=== PATIENT | female | born 1965 | race American Indian/Alaskan Native ===

== ENCOUNTER 2016-12-21 13:54 | Emergency (ER) | payer MEDICAID ==
[2016-12-21 14:10] VITALS: BMI 30.9
[2016-12-21] MEDS ORDERED: Famotidine 20mg/50ml 20 MG/50 ML BAG IV STA (14:55)
[2016-12-21] MEDS ORDERED: Sodium Chloride 0.9% 1,000 ML IV STA ×2 (14:55→14:56)
[2016-12-21 15:21] LABS: BASO # 0.02 K/mm3 (0.0-2.0); BASO % 0.2 % (0.0-3.0); EOS # 0.1 (0.0-0.7); EOS % 0.6 % (1.5-5.0); GRAN # 9.73 (1.4-6.5); GRAN % 78.5 % (50.0-68.0); HEMOGLOBIN 15.4 gm/dL (12.0-16.0); LYMPH # 1.9 (1.2-3.4); LYMPH % 15.7 % (22.0-35.0); MEAN CORPUSCULAR HEMOGLOBIN 30.4 pg (25.0-35.0); MEAN CORPUSCULAR HGB CONC 34.1 g/dl (31.0-37.0); MEAN PLATELET VOLUME 11.2 fl (7.0-11.0); MONO # 0.6 (0.1-0.6); PLATELET COUNT 238 10^3/uL (120.0-450.0); RBC 5.07 10^6/uL (3.5-6.1); RED CELL DISTRIBUTION WIDTH 13.9 % (11.5-14.5); WHITE BLOOD COUNT 12.4 10^3/ul (4.5-11.0)
[2016-12-21 15:30] LABS: ALB/GLOB RATIO 1.4 (1.1-1.8); ALBUMIN 4.4 g/dL (3.0-4.8); ALT/SGPT 20 U/L (7-56); AMYLASE 69 U/L (35-125); AST/SGOT 20 U/L (15-39); BLOOD UREA NITROGEN 12 mg/dL (7-21); CALCIUM 10.8 mg/dL (8.4-10.5); GFR AFRICAN-AMERICAN > 60; GFR NON-AFRICAN AMERICAN > 60; LIPASE 30 U/L (23-300)
[2016-12-21 15:42] LABS: PARTIAL THROMBOPLASTIN TIME 24.5 Seconds (23.7-30.8); PROTHROMBIN TIME 10.8 Seconds (9.9-11.8)
[2016-12-21 15:47] VITALS: TEMP 98.9
[2016-12-21] MEDS ORDERED: Magnesium Sulfate 1 gm in D5W 1 GM/100 ML BAG IVPB ONE (16:35)
[2016-12-21] MEDS ORDERED: Potassium Chloride 20 mEq ER Tab PO STA (16:35)
[2016-12-21] MEDS ORDERED: Iohexol 350 MG/100 ML VIAL ONE (17:08)
--- NOTE | 2016-12-21 17:56 | CT ---
PROCEDURE: CT Abdomen and Pelvis with contrast HISTORY: Abdominal pain COMPARISON: None. TECHNIQUE: CT scan of the abdomen and pelvis was performed without administration of oral contrast. Intravenous contrast was administered. Coronal and sagittal reformatted images were obtained. Radiation dose: Total exam DLP = 642.65 mGy-cm. This CT exam was performed using one or more of the following dose reduction techniques: Automated exposure control, adjustment of the mA and/or kV according to patient size, and/or use of iterative reconstruction technique. FINDINGS: LOWER THORAX: There is subsegmental atelectasis in both lower lobes. LIVER: There is mild hepatomegaly and diffuse low-attenuation in the level. There are scattered tiny low-attenuation lesions in the liver, too small to characterize by CT criteria but statistically most compatible with simple cysts. There is mild intrahepatic biliary ductal dilatation. GALLBLADDER AND BILE DUCTS: There are no calcified gallstones. There is mild prominence of the common bile duct. PANCREAS: Normal in size and homogeneous enhancement. There is mild prominence of the pancreatic duct. SPLEEN: The spleen is normal in size. ADRENALS: The right adrenal gland is normal in size. There is mild thickening of the left adrenal gland. KIDNEYS AND URETERS: Both kidneys are normal in size and there is homogeneous enhancement without hydronephrosis or mass. There is a 5 mm nonobstructing stone in the lower pole of the left kidney. VASCULATURE: No aortic aneurysm. BOWEL: The small bowel loops are normal in caliber. There is fecalization of distal small bowel contents. There is moderate amount of stool in the colon. APPENDIX: Normal appendix. PERITONEUM: No free fluid. No free air. LYMPH NODES: No enlarged lymph nodes. BLADDER: Normal in appearance. Common bile duct and pancreatic duct. REPRODUCTIVE: Unremarkable. BONES: There are age indeterminate superior endplate compression fractures in the L2 and L3 vertebral bodies, worse at L3. There is severe levoscoliosis in the lumbar spine and multilevel degenerative changes. OTHER FINDINGS: None. IMPRESSION: 1. Mild intrahepatic biliary dilatation and mild prominence of the common bile duct and pancreatic duct. No CT evidence of choledocholithiasis. 2. Mild hepatomegaly. Diffuse low-attenuation in the liver could be related to hepatic steatosis however hepatitis an other parenchymal processes cannot be entirely excluded. 3. 5 mm nonobstructing stone in the lower pole of the left kidney.
--- NOTE | 2016-12-21 18:14 | ED PDOC ---
Arrival/HPI - General Chief Complaint: GI Problem Time Seen by Provider: 12/21/16 14:55 - History of Present Illness Narrative History of Present Illness (Text): 12/21/16 18:13 51yo female with 2 days duration non-bilious, non-bloody vomiting, non-bloody diarrhea, nausea, and abd. cramping. No relieving or exacerbating factors. Denies recent travel, abx, denies relieving or exacerbating factors. No other complaints. Past Medical History - Provider Review Nursing Documentation Reviewed: Yes - Past History Past History: No Previous - Infectious Disease Hx of Infectious Diseases: None - Reproductive Menopause: Yes - Cardiac Hx Cardiac Disorders: No - Pulmonary Hx Asthma: Yes - Psychiatric Hx Substance Use: Yes - Anesthesia Hx Anesthesia: No Hx Anesthesia Reactions: No Hx Malignant Hyperthermia: No Family/Social History Family/Social History: Unknown Family HX Smoking Status: Heavy Smoker > 10 Cigarettes Daily Hx Alcohol Use: Yes Hx Substance Use: Yes Substance used: marijuana Allergies/Home Meds Allergies/Adverse Reactions: Allergies diphenhydramine Allergy (Verified 12/29/15 17:09) ITCHING Physical Exam - Physical Exam Narrative Physical Exam (Text): 12/21/16 18:14 - Review of Systems Constitutional: Normal. absent: Fatigue, Weight Change, Fevers Eyes: Normal ENT: denies sore throat, denies tristhmus Respiratory: Normal. absent: SOB, Cough, Sputum Cardiovascular: absent: Chest Pain, Palpitations, Syncope Gastrointestinal: Abdominal Pain, Diarrhea, Nausea, Vomiting Genitourinary: Normal. absent: Dysuria, Frequency, Hematuria, vaginal bleeding Musculoskeletal: Normal. absent: Arthralgias, Back Pain, Neck Pain Skin: no rashes, no erythema Neurological: absent: Focal Weakness Endocrine: Normal Hemo/Lymphatic: Normal Psychiatric: No suicidal or homicidal ideations Physical exam Patient appears age appropriate in no distress, speaking full sentences without difficulty - Systems Exam Head: Present: Atraumatic, Normocephalic Pupils: Present: PERRL Extroacular Muscles: Present: EOMI Conjunctiva: Present: Normal Mouth: Present: Moist Mucous Membranes Neck: Present: Normal Range of Motion. No: MIDLINE TENDERNESS, Paraspinal Tenderness Respiratory/Chest: Present: Clear to Auscultation, Good Air Exchange. No: Respiratory Distress, Accessory Muscle Use, Tachypneic Cardiovascular: Present: Regular Rate and Rhythm, Normal S1, S2, Peripheal Pulses Present. No: Murmurs Abdomen: Present: Normal Bowel Sounds. No: Tenderness, Distention, Peritoneal Signs, Rebound, Guarding Back: Present: Normal Inspection. No: Midline Tenderness, Paraspinal Tenderness Upper Extremity: Present: Normal Inspection. No: Cyanosis, Edema Lower Extremity: Present: Normal Inspection. No: Edema Neurological: Present: GCS=15, Speech Normal, cranial nerves II through XII fully intact with no cerebellar abnormality, neurosensory fully intact. No focal neurological deficits. Skin: Present: Warm, Dry, Normal Color. No: Rashes Lymphatic: Present: OX3, NI, NC Psychiatric: Present: Alert, Oriented x 3, Normal Insight, Normal Concentration Vital Signs Reviewed: Yes Vital Signs Temp Pulse Resp BP Pulse Ox 12/21/16 15:44 98.9 F 65 24 154/100 H 96 12/21/16 14:06 98.7 F 98 H 18 156/123 H 96 Temperature: Afebrile Blood Pressure: Hypertensive Pulse: Regular Respiratory Rate: Normal Appearance: Positive for: Well-Appearing Pain Distress: None Mental Status: Positive for: Alert and Oriented X 3 Medical Decision Making ED Course and Treatment: 12/21/16 18:19 51yo female with n/v/d and abd cramping no acute findings on PE K low, K and Mg replacement ordered CT unremarkable for acute findings On reevaluation, patient reports that she feels much better and would like to be discharged home. Patient's repeat abdominal exam is soft, nontender, non distended with positive bowel sounds in all 4 quadrants and no peritoneal signs. Patient is tolerating PO without any difficulty. Pt states she understands to return to the ER right away for new or worsening symptoms or for inability to f/u with PMD or specialist as instructed. Patient states that she fully agrees with and understands discharge instructions. States that she agrees with the plan and disposition. Verbalized and repeated discharge instructions and plan. I have given the patient opportunity to ask any additional questions. - Lab Interpretations Lab Results: 12/21/16 15:00 12/21/16 15:00 Lab Results 12/21/16 15:00: PT 10.8, INR 1.00, APTT 24.5 12/21/16 15:00: Sodium 141, Potassium 3.0 L, Chloride 106, Carbon Dioxide 24, Anion Gap 14, BUN 12, Creatinine 0.7, Est GFR ( Amer) > 60, Est GFR (Non- Af Amer) > 60, Random Glucose 105, Calcium 10.8 H, Total Bilirubin 1.0, AST 20, ALT 20, Alkaline Phosphatase 71, Total Protein 7.6, Albumin 4.4, Globulin 3.2, Albumin/Globulin Ratio 1.4, Amylase 69, Lipase 30 12/21/16 15:00: WBC 12.4 H, RBC 5.07, Hgb 15.4, Hct 45.1, MCV 89.0, MCH 30.4, MCHC 34.1, RDW 13.9, Plt Count 238, MPV 11.2 H, Gran % 78.5 H, Lymph % (Auto) 15.7 L, [place] % (Auto) 5.0, Eos % (Auto) 0.6 L, Baso % (Auto) 0.2, Gran # 9.73 H , Lymph # 1.9, Bell # 0.6, Eos # 0.1, Baso # 0.02 - RAD Interpretation Radiology Orders: 12/21/16 16:36 ABD & PELVIS IV CONTRAST ONLY [CT] Stat - Medication Orders Current Medication Orders: Potassium Chloride (Potassium Chloride 20 Meq/100 Ml) 20 meq in 100 mls @ 50 mls/hr IVPB ONCE ONE Stop: 12/21/16 18:34 Discontinued Medications Sodium Chloride (Sodium Chloride 0.9%) 1,000 mls @ 999 mls/hr IV .Q1H1M STA Stop: 12/21/16 15:56 Last Admin: 12/21/16 14:58 Dose: 999 mls/hr Famotidine (Pepcid 20mg/50ml Premix) 20 mg in 50 mls @ 100 mls/hr IV STAT STA Stop: 12/21/16 15:24 Last Admin: 12/21/16 15:11 Dose: 100 mls/hr Magnesium Sulfate/Dextrose (Magnesium Sulfate 1 Gm/100 Ml D5w) 1 gm in 100 mls @ 100 mls/hr IVPB ONCE ONE Stop: 12/21/16 17:34 Last Admin: 12/21/16 17:39 Dose: 100 mls/hr Iohexol (Omnipaque 350 100 Ml) Confirm Administered Dose 350 mg .ROUTE .STK-MED ONE Stop: 12/21/16 17:09 Ketorolac Tromethamine (Toradol) 15 mg IVP STAT STA Stop: 12/21/16 14:56 Last Admin: 12/21/16 15:11 Dose: 15 mg Ondansetron HCl (Zofran Inj) 4 mg IVP STAT STA Stop: 12/21/16 14:56 Last Admin: 12/21/16 15:11 Dose: 4 mg Potassium Chloride (K-Dur 20 Meq Er Tab) 40 meq PO STAT STA Stop: 12/21/16 16:36 Last Admin: 12/21/16 17:39 Dose: 40 meq Disposition/Present on Arrival - Present on Arrival Any Indicators Present on Arrival: No History of DVT/PE: No History of Uncontrolled Diabetes: No Urinary Catheter: No History of Decub. Ulcer: No History Surgical Site Infection Following: None - Disposition Have Diagnosis and Disposition been Completed?: Yes Diagnosis: Nausea vomiting and diarrhea Disposition: HOME/ ROUTINE Disposition Time: 18:11 Patient Plan: Discharge Condition: GOOD Discharge Instructions (ExitCare): Gastroenteritis (ED), Acute Nausea and Vomiting (ED), Acute Diarrhea (ED), Acute Abdominal Pain (ED) Additional Instructions: PLEASE RETURN TO THE EMERGENCY DEPARTMENT FOR NEW OR WORSENING SYMPTOMS. RETURN RIGHT AWAY IF YOU CANNOT FOLLOW UP WITH YOUR PRIMARY CARE DOCTOR, CLINIC, OR SPECIALIST IN 1-2 DAYS. Prescriptions: Famotidine [Pepcid] 20 mg PO BID #14 tab Ondansetron [Zofran Odt] 4 mg PO Q6 PRN #14 odt PRN Reason: Nausea/Vomiting Referrals: PCP,NO [Primary Care Provider] - Follow up with primary Monroe Zelaya MD [Medical Doctor] - Follow up with primary Nieves Ann MD [Staff Provider] - Follow up with primary Forms: [employer] (Setswana)
[2016-12-21 19:14] VITALS: BP 158/92; PULSE 70; RESP 18; O2SAT 97
== END 2016-12-21 19:14 | disposition home or self-care (01) ==
LOC: ED 13:54
DX: R11.2 Nausea with vomiting, unspecified (principal); R19.7 Diarrhea, unspecified
CPT/HCPCS: 74177; 80053; 82150; 83690; 85025; 85610; 85730; 96361; 96365; 96367; 96375; 99285; J1885; J2405; J3475; J3480; J7040; Q9967

== ENCOUNTER 2017-09-03 15:26 | Inpatient (IN) | payer MEDICAID ==
--- NOTE | 2017-09-03 16:27 | ED PDOC ---
Arrival/HPI - General Historian: Patient - History of Present Illness Time/Duration: < week Symptom Course: Worsening Activities at Onset: Rest - General Chief Complaint: Chest Pain Time Seen by Provider: 09/03/17 15:40 - History of Present Illness Narrative History of Present Illness (Text): 09/03/17 16:20 52 yo F with PMH of hypertension on clonidine 0.3mg BID presents complaining of nausea/vomiting x1 week and chest pain x2 days. Vomiting is nonbloody, nonbilious. She took some pepto bismol yesterday which helped. She denies fever , chills, diarrhea. She does report some epigastric abdominal pain that started after the vomiting. Chest pain woke her up from sleep yesterday, in the left chest, worsens with deep inhalation, reproducible on exam, does not radiate. No dyspnea on exertion, chest pain does not worsen with exertion, no diaphoresis. She has never had this pain before. Patient reports that she snorts 10 bags of heroin daily, and feels as though she got a "bad bag" a week ago that made her sick. She did not use any heroin today. She denies history of IVDA. She also smokes 1/2ppd x30 years, current active smoker. She normally takes clonidine for her blood pressure, 0.3mg twice daily, but she did not take her clonidine today. (Otf Wan) Past Medical History - Provider Review Nursing Documentation Reviewed: Yes - Travel History Have you recently traveled outside [place] w/in the past 3 mons?: No - Infectious Disease Hx of Infectious Diseases: None - Tetanus Immunization Tetanus Immunization: Unknown - Cardiac Hx Hypertension: Yes - Pulmonary Hx Asthma: Yes - Psychiatric Hx Substance Use: Yes - Anesthesia Hx Anesthesia: No Hx Anesthesia Reactions: No Hx Malignant Hyperthermia: No - Patient History Narrative Patient History: hypertension (Otf Wan) Family/Social History - Physician Review Nursing Documentation Reviewed: Yes Family/Social History: Unknown Family HX Smoking Status: Heavy Smoker > 10 Cigarettes Daily Hx Alcohol Use: Yes Hx Substance Use: Yes Substance used: marijuana, heroin Route: Smoking/Inhalation Allergies/Home Meds Allergies/Adverse Reactions: Allergies diphenhydramine Allergy (Verified 09/03/17 15:42) ITCHING Home Medications: Home Meds Medication Instructions Recorded Confirmed No Known Home Med 09/03/17 09/03/17 Review of Systems - Review of Systems Constitutional: Normal Eyes: Normal ENT: Normal Respiratory: Normal Cardiovascular: Chest Pain, Edema Gastrointestinal: Abdominal Pain, Nausea, Vomiting Genitourinary Female: Normal Musculoskeletal: Normal Skin: Normal Neurological: Normal Endocrine: Normal Hemo/Lymphatic: Normal Psychiatric: Normal Physical Exam Vital Signs Reviewed: Yes Temperature: Afebrile Blood Pressure: Hypertensive Pulse: Regular Respiratory Rate: Normal Appearance: Positive for: Well-Appearing, Non-Toxic, Uncomfortable. No: Comfortable Pain Distress: Moderate Mental Status: Positive for: Alert and Oriented X 3 - Systems Exam Head: Present: Atraumatic, Normocephalic Pupils: Present: PERRL Extroacular Muscles: Present: EOMI Conjunctiva: Present: Normal Mouth: Present: Moist Mucous Membranes Neck: Present: Normal Range of Motion Respiratory/Chest: Present: Good Air Exchange, Rales (faint, bibasilar). No: Respiratory Distress Cardiovascular: Present: Regular Rate and Rhythm, Normal S1, S2 Abdomen: Present: Tenderness (epigastric), Normal Bowel Sounds. No: Distention , Peritoneal Signs, Rebound, Guarding Upper Extremity: Present: Normal Inspection. No: Cyanosis, Edema Lower Extremity: Present: Edema (bilateral, trace pitting edema, to mid-dean, L> R). No: CALF TENDERNESS Neurological: Present: GCS=15, CN II-XII Intact, Speech Normal Skin: Present: Warm, Dry, Normal Color Psychiatric: Present: Alert, Oriented x 3, Normal Insight, Normal Concentration Vital Signs Temp Pulse Resp BP Pulse Ox 09/03/17 20:10 88 20 111/80 96 09/03/17 19:00 86 18 112/76 98 09/03/17 17:13 78 158/116 H 09/03/17 16:00 98.9 F 88 18 176/118 H 95 Medical Decision Making - Lab Interpretations I have reviewed the lab results: Yes Interpretation: Abnormal lab values - RAD Interpretation Therapeutic Strategy Lead: Radiologist - EKG Interpretation Interpreted by ED Physician: Yes Type: 12 lead EKG ED Course and Treatment: 09/03/17 16:34 Impression: Chest pain, h/o intranasal heroin use, nausea/vomiting Differential Diagnosis included but are not limited to: ACS, DVT/PE, chemical pneumonitis, gastritis Plan: -- CBC, CMP, Cardiac ISO, Amylase/Lipase, BNP, D dimer, PT/PTT, Mag, Urinalysis , UDS -- Chest X-ray, EKG, LE duplex -- NPO -- O2 2LNC -- Clonidine 0.3mg for hypertension -- Zofran for nausea -- Pepcid for ?gastritis -- Reassess and disposition Prior Visits: Notes and results from previous visits were reviewed. Progress Notes: Patient reevaluated after zofran, pepcid, and clonidine. BP improved. Nausea, abdominal pain, and chest pain slightly improved. EKG and Chest X-ray unremarkable. LE Duplex negative for DVT. D Dimer low. Amylase/Lipase low. Cardiac ISO negative. Labs remarkable for elevated T Bili, ordered Abd US Abd US shows cholelithiasis and dilated CBD, without thickened gallbladder wall , no pericholecystic fluid. Patinet continues to have some mild abdominal pain, mild nausea. Requested general surgery consult. Discussed patient with hospitalist Dr. Rock Levi, who accepts patient to her service, patient will be admitted to remote telemetry for hypertension, chest pain, abdominal pain, nausea, and cholelithiasis (Otf Wan) 09/03/17 22:00 Patient seen and evaluated with biomedical engineering supervisor. Patient reports history of upper abdominal pain which is palpable, moderate, epigastric on my exam. She also reports history of chest discomfort. Chest pain is somewhat palpable, although she is hypertensive. BP and pulse equal in both upper extremities. Clonidine given with improvement in BP. Abdominal pain improved but persistent after iv pain medication. Ultrasound reveals gallstones. Currently wbc unremarkable and currently no sonographic evidence of cholecysitis. Patient will be admitted to telemetry for biliary colic, chest pain with hypertension. EKG unremarkable currently for acute ischemic changes. Case d/w hospitalist, accepts admission with surgery consultation. (Nabila Ta) - Lab Interpretations Lab Results: 09/03/17 16:30 09/03/17 16:30 Lab Results 09/03/17 16:30: PT 12.6 H, INR 1.10 H, APTT 32.5, D-Dimer, Quantitative < 200 09/03/17 16:30: Sodium 142, Potassium 3.8, Chloride 101, Carbon Dioxide 29, Anion Gap 16, BUN 12, Creatinine 0.6 L, Est GFR ( Amer) > 60, Est GFR ( Non-Af Amer) > 60, Random Glucose 112 H, Calcium 11.9 H, Magnesium 2.3 H, Total Bilirubin 1.6 H, AST 27, ALT 20, Alkaline Phosphatase 78, Lactate Dehydrogenase 612, Total Creatine Kinase 44, Troponin I 0.01, NT-Pro-B Natriuret Pep 276, Total Protein 8.4 H, Albumin 4.6, Globulin 3.7, Albumin/Globulin Ratio 1.2, Amylase 73, Lipase 40 09/03/17 16:30: WBC 9.9 D, RBC 5.39, Hgb 16.2 H, Hct 47.4, MCV 87.9, MCH 30.1, MCHC 34.2, RDW 14.6 H, Plt Count 233, MPV 10.9, Gran % 73.6 H, Lymph % (Auto) 16.1 L, [place] % (Auto) 9.5 H, Eos % (Auto) 0.7 L, Baso % (Auto) 0.1, Gran # 7.32 H, Lymph # (Auto) 1.6, [place] # (Auto) 0.9 H, Eos # (Auto) 0.1, Baso # (Auto) 0.01 - RAD Interpretation Radiology Orders: 09/03/17 16:00 DUPLEX LOWER EXTRM VEIN BILAT [US] Stat 09/03/17 16:01 CHEST PORTABLE [RAD] Stat 09/03/17 17:20 ABDOMEN COMPLETE [US] Stat - Medication Orders Current Medication Orders: Aspirin (Aspirin Chewable) 81 mg PO DAILY ADRIANO Atorvastatin Calcium (Lipitor) 10 mg PO DIN [facility] Sodium Chloride (Sodium Chloride 0.9%) 1,000 mls @ 125 mls/hr IV .Q8H [facility] Discontinued Medications Aspirin (Aspirin) 325 mg PO STAT STA Stop: 09/03/17 21:32 Atorvastatin Calcium (Lipitor) 20 mg PO STAT STA Stop: 09/03/17 21:32 Clonidine HCl (Catapres) 0.3 mg PO STAT STA Stop: 09/03/17 16:16 Last Admin: 09/03/17 17:13 Dose: 0.3 mg MAR Pulse and Blood Pressure Document 09/03/17 17:13 HI (Rec: 09/03/17 17:13 HI [id number]) Pulse Pulse Rate (60-90 beats/min) 78 Blood Pressure Blood Pressure (100/60-150/90 mm Hg) 158/116 Famotidine (Pepcid) 20 mg IVP STAT STA Stop: 09/03/17 16:05 Last Admin: 09/03/17 16:37 Dose: 20 mg IVP Administration Document 09/03/17 16:37 HI (Rec: 09/03/17 16:37 HI [id number]) Charges for Administration # of IVP Administrations 1 Ondansetron HCl (Zofran Inj) 4 mg IVP STAT STA Stop: 09/03/17 16:05 Last Admin: 09/03/17 16:37 Dose: 4 mg IVP Administration Document 09/03/17 16:37 HI (Rec: 09/03/17 16:37 HI [id number]) Charges for Administration # of IVP Administrations 1 Pneumococcal Polyvalent Vaccine (Pneumovax 23 Vaccine) 0.5 ml IM .ONCE ONE Stop: 09/03/17 21:49 Disposition/Present on Arrival - Present on Arrival Any Indicators Present on Arrival: No History of DVT/PE: No History of Uncontrolled Diabetes: No Urinary Catheter: No History of Decub. Ulcer: No History Surgical Site Infection Following: None - Disposition Have Diagnosis and Disposition been Completed?: Yes Disposition Time: 20:20 Patient Plan: Telemetry - Disposition Diagnosis: Chest pain, Abdominal pain, Nausea & vomiting, Hypertension, Cholelithiasis Disposition: HOSPITALIZED Patient Problems: Current Active Problems Problem Status Onset Abdominal pain Acute Chest pain Acute Cholelithiasis Acute Hypertension Acute Nausea & vomiting Acute Condition: STABLE
[2017-09-03 16:48] LABS: BASO # 0.01 K/mm3 (0.0-2.0); BASO % 0.1 % (0.0-3.0); EOS # 0.1 (0.0-0.7); EOS % 0.7 % (1.5-5.0); GRAN # 7.32 (1.4-6.5); GRAN % 73.6 % (50.0-68.0); HEMOGLOBIN 16.2 g/dL (12.0-16.0); LYMPH # 1.6 (1.2-3.4); LYMPH % 16.1 % (22.0-35.0); MEAN CELL VOLUME 87.9 fl (80.0-105.0); MEAN CORPUSCULAR HEMOGLOBIN 30.1 pg (25.0-35.0); MEAN CORPUSCULAR HGB CONC 34.2 g/dl (31.0-37.0); MEAN PLATELET VOLUME 10.9 fl (7.0-11.0); MONO # 0.9 (0.1-0.6); MONO % 9.5 % (1.0-6.0); RBC 5.39 10^6/uL (3.5-6.1); RED CELL DISTRIBUTION WIDTH 14.6 % (11.5-14.5); WHITE BLOOD COUNT 9.9 10^3/ul (4.5-11.0)
[2017-09-03 16:58] LABS: PROTHROMBIN TIME 12.6 SECONDS (9.4-12.5)
[2017-09-03 16:59] LABS: D DIMER < 200 ng/mL (0-243); PARTIAL THROMBOPLASTIN TIME 32.5 Seconds (25.1-36.5)
[2017-09-03 17:01] LABS: AMYLASE 73 U/L (35-125); CALCIUM 11.9 mg/dL (8.4-10.5); GFR AFRICAN-AMERICAN > 60; GFR NON-AFRICAN AMERICAN > 60; LIPASE 40 U/L (23-300)
[2017-09-03 17:06] LABS: ALB/GLOB RATIO 1.2 (1.1-1.8); ALBUMIN 4.6 g/dL (3.0-4.8); ALT/SGPT 20 U/L (7-56); AST/SGOT 27 U/L (14-36); BLOOD UREA NITROGEN 12 mg/dL (7-21)
[2017-09-03 17:12] LABS: B-TYPE NATRIURETIC PEPTIDE 276 pg/mL (0-450)
[2017-09-03 17:16] LABS: TROPONIN I 0.01 ng/mL
--- NOTE | 2017-09-03 18:08 | RAD ---
HISTORY: Chest pain COMPARISON: No prior. FINDINGS: LUNGS: The lungs are well inflated and clear. There is linear atelectasis/scarring in the right lung base. PLEURA: No significant pleural effusion identified, no pneumothorax apparent. CARDIOVASCULAR: Normal. OSSEOUS STRUCTURES: No significant abnormalities. VISUALIZED UPPER ABDOMEN: Normal. OTHER FINDINGS: None. IMPRESSION: No active pulmonary disease.
--- NOTE | 2017-09-03 18:24 | US ---
HISTORY: Leg pain and swelling. Evaluate for DVT PHYSICIAN(S): Karthikeyan Ponce MD. TECHNIQUE: Duplex sonography and color-flow Doppler with graded compression were used to evaluate the deep venous systems of both lower extremities. FINDINGS: The visualized deep venous systems of both lower extremities are sonographically normal and compressible. Normal wave forms and augmentation are seen. There is no sonographic evidence for deep venous thrombosis in the visualized segments of both lower extremities. Small bilateral Sheets cysts are present, greater on the left than the right. IMPRESSION: No sonographic evidence for deep venous thrombosis in the visualized segments of both lower extremities.
--- NOTE | 2017-09-03 18:30 | US ---
HISTORY: elevated T-bili; abdominal pain; N/V COMPARISON: None. TECHNIQUE: Grayscale imaging was performed. FINDINGS: LIVER: Measures 14.1 cm. There is diffuse increased echogenicity of the liver parenchyma. No mass. No intrahepatic bile duct dilatation. GALLBLADDER: There are multiple gallstones. No wall thickening or pericholecystic fluid. The sonographic Marquez's sign is negative. COMMON BILE DUCT: Measures 10 mm. There is diffuse dilatation without evidence for choledocholithiasis. PANCREAS: Unremarkable as visualized. No mass. No ductal dilatation. RIGHT KIDNEY: Measures 9.7cm. Normal echogenicity. No calculus, mass, or hydronephrosis. LEFT KIDNEY: Measures 10.6cm. Normal echogenicity. No calculus, mass, or hydronephrosis. SPLEEN: Normal in size and contour. No mass. AORTA: No aneurysmal dilatation. IVC: Unremarkable. OTHER FINDINGS: None. IMPRESSION: Cholelithiasis. No sonographic evidence for acute cholecystitis. Moderate diffuse dilatation of the common bile duct without evidence for choledocholithiasis. Diffuse increased echogenicity in the liver may reflect hepatic steatosis however parenchymal infectious/ inflammatory etiologies cannot be entirely excluded. Clinical and laboratory correlation is advised.
--- NOTE | 2017-09-03 20:34 | CP.PCM.HP ---
<Valentina Lowry - Last Filed: 09/04/17 04:39> History of Present Illness - History of Present Illness History of Present Illness: Admission: hypertension, chest pain, abdominal pain, nausea, and cholelithiasis CC: n/v, cp 52 year old female with PMH HTN, heroin abuse, presents for nausea and vomiting for past 1 week. Last Friday, pt states that she started having vomiting episodes 1-2 nonbloody, nonbilious after she snorted her usual 10 bags of heroin. She attributed it to possibly a "bad bag" that made her sick. Denies previous such episodes. Last vomiting episode this AM. Pt also started having associated epigastric pain, relieved partially by Pepto Bismol. Pt also reports left sided chest pain, pressure like, worsens with movement and deep inspiration , nonradiating, denies associated palpitations, diaphoresis, syncope, dizziness. No prior episodes before. No prior stress test or cardiac cath. In ED, elevated BP 178/118, given clonidine. Hgb 16.2 (concentrated), total bili 1.6, d dimer neg with LE US neg for DVT. Lipase, LFTs, ALP norml. trop 0.[address]/T wave changes on EKG. Abd US shows cholelithiasis and CBD dilatation. 12 point ROS obtained and negative, except as per HPI. PMD: [place] PMH: HTN PSH: Denies ALL: Diphenhydramine (sleepy, tingling) SocialHx: Lives with boyfriend. Unemployed. smokes tobacoo 1/2 ppd for 30+ years , 10 bags of heroine per day for 10+ years, denies ETOH use/IVDU. FamilyHx: Sister of lung cancer Home meds: clonidine 0.3 mg BID Present on Admission - Present on Admission Any Indicators Present on Admission: No History of DVT/PE: No History of Uncontrolled Diabetes: No Urinary Catheter: No Decubitus Ulcer Present: No Review of Systems - Review of Systems All systems: reviewed and no additional remarkable complaints except Review of Systems: as per HPI Past Patient History - Infectious Disease Hx of Infectious Diseases: None - Tetanus Immunizations Tetanus Immunization: Unknown - Past Social History Smoking Status: Heavy Smoker > 10 Cigarettes Daily - CARDIAC Hx Hypertension: Yes - PULMONARY Hx Asthma: Yes - PSYCHIATRIC Hx Substance Use: Yes - SURGICAL HISTORY Hx Surgeries: No - ANESTHESIA Hx Anesthesia: No Hx Anesthesia Reactions: No Hx Malignant Hyperthermia: No Meds Allergies/Adverse Reactions: Allergies Allergy/AdvReac Type Severity Reaction Status Date / Time diphenhydramine Allergy ITCHING Verified 09/03/17 15:42 Physical Exam - Constitutional Appears: Non-toxic, No Acute Distress - Head Exam Head Exam: ATRAUMATIC, NORMOCEPHALIC - Eye Exam Eye Exam: EOMI, PERRL. absent: Conjunctival injection, Nystagmus, Scleral icterus Pupil Exam: NORMAL ACCOMODATION, PERRL. absent: Fixed, Irregular, Miosis, Mydriatic, Unequal - ENT Exam ENT Exam: Mucous Membranes Moist - Neck Exam Neck exam: Positive for: Full Rom - Respiratory Exam Respiratory Exam: Clear to Auscultation Bilateral, NORMAL BREATHING PATTERN. absent: Accessory Muscle Use, Rhonchi, Wheezes, Respiratory Distress, Stridor - Cardiovascular Exam Cardiovascular Exam: RRR, +S1, +S2. absent: Systolic Murmur - GI/Abdominal Exam GI & Abdominal Exam: Normal Bowel Sounds, Soft, Tenderness (TTP in epigastric region). absent: Distended, Firm, Mass, Organomegaly, Rebound, Rigid Additional comments: rounded abdomen, obese female - Extremities Exam Extremities exam: Positive for: normal inspection. Negative for: calf tenderness, pedal edema - Back Exam Back exam: NORMAL INSPECTION. absent: CVA tenderness (L), CVA tenderness (R) - Neurological Exam Neurological exam: Alert, Oriented x3, Reflexes Normal Additional comments: + Sleepy - Psychiatric Exam Additional comments: Sleepy - Skin Skin Exam: Dry, Normal Color, Warm Additional comments: normal skin turgor. No jaundice Results - Vital Signs Recent Vital Signs: Last Vital Signs Temp 98.9 F 09/03/17 16:00 Pulse 88 09/03/17 20:10 Resp 20 09/03/17 20:10 BP 111/80 09/03/17 20:10 Pulse Ox 96 09/03/17 20:10 - Labs Result Diagrams: 09/03/17 16:30 09/03/17 16:30 Assessment & Plan - Assessment and Plan (Free Text) Assessment: 52 year old female with PMH HTN, heroin abuse, presents for cp, nausea/vomiting , dilated CBD: Chest pain, r/o ACS: likely from GI origin vs musculoskeletal vs ACS - initial trop 0.01, f/u serial trops - EKG NSR, no ST.T wave abnormalities, official read pending. F/u EKG in AM. - D dimer low, LE duplex neg for DVT Nausea and vomiting/epigastric pain: likely 2/2 cholelithiaisis vs gastroenteritis - Abd US shows cholelithiasis (multiple) and dilated CBD 10 mm without evidence of choledocholithiasis, without thickened gallbladder wall, no pericholecystic fluid. - Zofran prn - norml lipase/amylase - Surgery and GI consulted. F/u recs - Protonix IV - NPO - NS @ 125 Dilated CBD: 2/2 opium induced vs obstructive pathology - Gi consulted. F/u recs - MRCP - Direct bili f/u Heroin/Opioid abuse: - COWS score low, 3 currently - Ativan prn, klonopin prn, Atarax prn Hx of HTN: - resume home clonidine PPX: Protonix, SCDs Diet: NPO Discussed with Dr Lani Levi. <Rock Levi - Last Filed: 09/04/17 06:23> Results - Vital Signs Recent Vital Signs: Last Vital Signs Temp 98.6 F 09/03/17 21:23 Pulse 75 09/04/17 05:45 Resp 18 09/03/17 21:23 BP 131/70 09/03/17 21:23 Pulse Ox 96 09/03/17 20:10 - Labs Result Diagrams: 09/04/17 04:35 09/04/17 04:35 Labs: Laboratory Results - last 24 hr 09/04/17 09/04/17 09/04/17 04:35 04:35 04:35 WBC 8.3 RBC 4.89 Hgb 14.3 Hct 43.0 MCV 87.9 MCH 29.2 MCHC 33.3 RDW 14.8 H Plt Count 203 MPV 10.6 Gran % 63.3 Lymph % (Auto) 25.2 [place] % (Auto) 9.4 H Eos % (Auto) 2.0 Baso % (Auto) 0.1 Gran # 5.26 Lymph # (Auto) 2.1 [place] # (Auto) 0.8 H Eos # (Auto) 0.2 Baso # (Auto) 0.01 Sodium 143 Potassium 3.3 L Chloride 106 Carbon Dioxide 30 Anion Gap 10 BUN 13 Creatinine 0.8 Est GFR ( Amer) > 60 Est GFR (Non-Af Amer) > 60 Random Glucose 104 Calcium 11.5 H Phosphorus 2.7 Magnesium 2.3 H Total Bilirubin 1.8 H Direct Bilirubin 0.5 H AST 23 ALT 23 Alkaline Phosphatase 67 Troponin I 0.01 Total Protein 7.0 Albumin 3.8 Globulin 3.1 Albumin/Globulin Ratio 1.2 Triglycerides 91 Cholesterol 185 LDL Cholesterol Direct 116 HDL Cholesterol 39 TSH 3rd Generation < 0.02 L
--- NOTE | 2017-09-03 21:01 | CP.PCM.CON ---
History of Present Illness - History of Present Illness History of Present Illness: General Surgery- Dr. Zurita 52F pmhx significant for HTN and heroin use 1bag/oz per day for 10 years, presents to [facility] ED w/ nausea, morning non-bloody non-bilious vomiting, and epigastric radiating to RUQ abd pain that started 2 weeks ago, and chest pain for 2 days. Surgery was consulted for dialated CBD Pt suspects that it could have been a bad bag of heroine. last drug use was earlier today. Denies fevers, chills, bright red blood per rectum, diarrhea, recent sick contacts PMH: HTN PSH: Denies ALL: Diphenhydramine SocialHx: smokes 1/2 ppd for 30+ years, 1 bag/oz of heroine per day for 10+ years, denies ETOH use FamilyHx: Sister of lung cancer PMD: Dr. Butts Review of Systems - Review of Systems All systems: reviewed and no additional remarkable complaints except - Constitutional Constitutional: As Per HPI Past Patient History - Infectious Disease Hx of Infectious Diseases: None - Tetanus Immunizations Tetanus Immunization: Unknown - Past Social History Smoking Status: Heavy Smoker > 10 Cigarettes Daily - CARDIAC Hx Hypertension: Yes - PULMONARY Hx Asthma: Yes - PSYCHIATRIC Hx Substance Use: Yes - SURGICAL HISTORY Hx Surgeries: No - ANESTHESIA Hx Anesthesia: No Hx Anesthesia Reactions: No Hx Malignant Hyperthermia: No Meds Allergies/Adverse Reactions: Allergies Allergy/AdvReac Type Severity Reaction Status Date / Time diphenhydramine Allergy ITCHING Verified 09/03/17 15:42 Physical Exam - Constitutional Appears: Non-toxic, No Acute Distress, Other (would converse but sleeping and slow during encounter) - Head Exam Head Exam: ATRAUMATIC - Eye Exam Eye Exam: EOMI - ENT Exam ENT Exam: Mucous Membranes Moist - Respiratory Exam Respiratory Exam: NORMAL BREATHING PATTERN. absent: Accessory Muscle Use, Respiratory Distress - Cardiovascular Exam Cardiovascular Exam: +S1, +S2. absent: Bradycardia, Tachycardia - GI/Abdominal Exam GI & Abdominal Exam: Soft. absent: Distended, Firm, Guarding, Rigid, Tenderness Additional comments: - [place] sign - tender to deep palpation in RUQ - Extremities Exam Extremities exam: Negative for: calf tenderness - Back Exam Back exam: absent: CVA tenderness (L), CVA tenderness (R) - Neurological Exam Neurological exam: Alert, Oriented x3 - Psychiatric Exam Psychiatric exam: Normal Affect - Skin Skin Exam: Dry, Intact, Warm Results - Vital Signs Recent Vital Signs: Last Vital Signs Temp 98.9 F 09/03/17 16:00 Pulse 88 09/03/17 20:10 Resp 20 09/03/17 20:10 BP 111/80 09/03/17 20:10 Pulse Ox 96 09/03/17 20:10 - Labs Result Diagrams: 09/03/17 16:30 09/03/17 16:30 Assessment & Plan - Assessment and Plan (Free Text) Assessment: 52F w/ heroine dependence, chest and abd pain, dialated CBD on US most likely 2/ 2 chronic opium addiction US: no GBW thickening, no periocholecystic fluid. Plan: - Gallbladder not the source of pain - NPO - IVF - Recommend GI Consult - MRCP - will discuss w/ Dr. Zurita surgical attending PGY1
[2017-09-03 21:48] VITALS: BMI 30.7
[2017-09-03] MEDS ORDERED: Pneumococcal 23-Valent Vaccine IM ONE (21:48)
[2017-09-03] MEDS: Sodium Chloride 0.9% 1,000 ML IV SCH (22:38)
[2017-09-03] MEDS ORDERED: POLYETHYLENE GLYCOL 3350 17 GM/Dose PACKET PO STA (23:27)
[2017-09-04 05:00] LABS: BASO # 0.01 K/mm3 (0.0-2.0); BASO % 0.1 % (0.0-3.0); EOS # 0.2 (0.0-0.7); GRAN # 5.26 (1.4-6.5); GRAN % 63.3 % (50.0-68.0); HEMOGLOBIN 14.3 g/dL (12.0-16.0); LYMPH # 2.1 (1.2-3.4); LYMPH % 25.2 % (22.0-35.0); MEAN CELL VOLUME 87.9 fl (80.0-105.0); MEAN CORPUSCULAR HEMOGLOBIN 29.2 pg (25.0-35.0); MEAN CORPUSCULAR HGB CONC 33.3 g/dl (31.0-37.0); MEAN PLATELET VOLUME 10.6 fl (7.0-11.0); MONO # 0.8 (0.1-0.6); MONO % 9.4 % (1.0-6.0); RBC 4.89 10^6/uL (3.5-6.1); RED CELL DISTRIBUTION WIDTH 14.8 % (11.5-14.5); WHITE BLOOD COUNT 8.3 10^3/ul (4.5-11.0)
[2017-09-04 05:19] LABS: ALB/GLOB RATIO 1.2 (1.1-1.8); ALBUMIN 3.8 g/dL (3.0-4.8); ALT/SGPT 23 U/L (7-56); AST/SGOT 23 U/L (14-36); BILIRUBIN,DIRECT 0.5 mg/dL (0.0-0.4); BLOOD UREA NITROGEN 13 mg/dL (7-21); CALCIUM 11.5 mg/dL (8.4-10.5); GFR AFRICAN-AMERICAN > 60; GFR NON-AFRICAN AMERICAN > 60; HDL CHOLESTEROL 39 mg/dL (29-60)
[2017-09-04 05:26] LABS: TROPONIN I 0.01 ng/mL
[2017-09-04] MEDS: Sodium Chloride 0.9% 1,000 ML IV SCH (05:29)
[2017-09-04 05:43] LABS: LDL CHOLESTEROL 116 mg/dL (0-129)
[2017-09-04] MEDS ORDERED: NS IV SCH (06:55)
[2017-09-04] MEDS ORDERED: SODIUM CHLORIDE 0.9% IV SCH (06:55)
[2017-09-04] MEDS ORDERED: POTASSIUM CHL IV SCH (06:55)
[2017-09-04] MEDS ORDERED: Sodium Chloride 0.45% 1,000 ML IV SCH (07:15)
--- NOTE | 2017-09-04 07:28 | CP.PCM.PN ---
Subjective - Date & Time of Evaluation Date of Evaluation: 09/04/17 Time of Evaluation: 07:26 - Subjective Subjective: Surgery Progress Note Patient seen and examined at bedside. Per nursing no acute events occurred overnight. Patient denies any nausea, fevers, chills, headaches, or any other complaints. Objective - Vital Signs/Intake and Output Vital Signs (last 24 hours): Temp Pulse Resp BP Pulse Ox 98.6 F 75 18 131/70 96 09/03/17 21:23 09/04/17 05:45 09/03/17 21:23 09/03/17 21:23 09/03/17 20:10 Intake and Output: 09/04/17 09/04/17 06:59 18:59 Intake Total 0 Balance 0 - Medications Medications: Current Medications Clonazepam (Klonopin) 1 mg PO BID PRN; Protocol PRN Reason: Other Clonidine HCl (Catapres) 0.3 mg PO BID ADRIANO Hydroxyzine HCl (Atarax) 50 mg PO Q12H PRN PRN Reason: Other Sodium Chloride/ Potassium (Chloride/Sodium Chloride) 1,040 mls @ 125 mls/hr IV .Q8H20M ADRIANO Sodium Chloride (Sodium Chloride 0.45%) 1,000 mls @ 120 mls/hr IV .Q8H20M ADRIANO Lorazepam (Ativan) 2 mg IVP Q4H PRN; Protocol PRN Reason: Agitation Ondansetron HCl (Zofran Inj) 4 mg IVP Q4H PRN PRN Reason: Nausea/Vomiting Pantoprazole Sodium (Protonix Inj) 40 mg IVP DAILY ADRIANO - Labs Labs: 09/04/17 04:35 09/04/17 04:35 PT 12.6 SECONDS (9.4-12.5) H 09/03/17 16:30 INR 1.10 (0.93-1.08) H 09/03/17 16:30 APTT 32.5 Seconds (25.1-36.5) 09/03/17 16:30 - Head Exam Head Exam: ATRAUMATIC, NORMAL INSPECTION, NORMOCEPHALIC - Eye Exam Eye Exam: Normal appearance - ENT Exam ENT Exam: Mucous Membranes Moist, Normal Exam - Neck Exam Neck Exam: Normal Inspection - Respiratory Exam Respiratory Exam: Clear to Ausculation Bilateral - Cardiovascular Exam Cardiovascular Exam: REGULAR RHYTHM - GI/Abdominal Exam GI & Abdominal Exam: Normal Bowel Sounds - Extremities Exam Extremities Exam: Full ROM - Neurological Exam Neurological Exam: Alert, Awake - Psychiatric Exam Psychiatric exam: Normal Affect, Normal Mood Assessment and Plan - Assessment and Plan (Free Text) Assessment: 52 year old female with dilated common bile duct. Plan: -NPO -IVF -F/U with GI consult. -F/U with MRCP results. -Medical management per Primary Care team.
--- NOTE | 2017-09-04 09:55 | CARD ---
APPROVED REPORT EKG Measurement Heart [id number] <Conclusion> Normal sinus rhythm Nonspecific T wave abnormality. new
--- NOTE | 2017-09-04 10:13 | CARD ---
APPROVED REPORT EKG Measurement Heart [id number] <Conclusion> Normal sinus rhythm Nonspecific T wave abnormality V 5,6 T waves biphasic, new
[2017-09-04 13:30] LABS: TROPONIN I < 0.01 ng/mL
[2017-09-04 13:50] LABS: PH,URINE 6.5 (4.7-8.0); URINE BILIRUBIN SMALL (NEGATIVE); URINE BLOOD SMALL (NEGATIVE); URINE GLUCOSE (UA) NEGATIVE (NEGATIVE); URINE LEUKOCYTE ESTERASE LARGE Leu/uL (NEGATIVE); URINE PROTEIN TRACE mg/dL (<30 mg/dL)
[2017-09-04 13:57] LABS: URINE APPEARANCE CLOUDY (CLEAR); URINE COLOR DARK YELLOW (YELLOW)
[2017-09-04 14:29] LABS: URINE WBC TNTC /hpf (0-6)
[2017-09-04 14:30] LABS: BARBITURATES, UR NEGATIVE (NEGATIVE); BENZODIAZEPINES, UR NEGATIVE (NEGATIVE); OPIATES, UR POSITIVE (NEGATIVE); PHENCYCLIDINE, UR NEGATIVE (NEGATIVE); URINE BACTERIA MANY (NEG); URINE CALCIUM OXALATE CRYSTALS FEW /hpf; URINE EPITHELIAL CELLS 0 - 2 /hpf (0-5)
--- NOTE | 2017-09-04 16:26 | CP.PCM.CON ---
<Kareen Pham - Last Filed: 09/04/17 16:23> History of Present Illness - History of Present Illness History of Present Illness: Seen and examined at the bedside earlier today, chart was reviewed. Request for GI consult is for dilated CBD HPI: This is a 52-year-old female with a past medical history of heroin abuse, hypertension came to the emergency room with complaints of nausea and vomiting for the past week. Patient states that last Friday she started vomiting nonbloody nonbilious semi-cysts of 1-2 episodes after snorting 10 bags of heroin , patient states that his usual amount. She reports that it was probably a bad bag of heroin that caused her to be sick. She denies any hematemesis. She did complain of epigastric discomfort and took Pepto-Bismol with relief. She does complain of left-sided chest pain with pressure and worsens upon deep inspiration and movement. No complaints of any shortness of breath. Patient denies any diarrhea or constipation or bleeding per rectum. On admission she had an abdominal ultrasound which showed cholelithiasis and CBD dilatation, measuring 10 mm. No evidence of choledocholithiasis. The pancreas was unremarkable. No evidence of acute cholecystitis. She was also noted to have diffuse increased echogenicity of the liver parenchyma. No intrahepatic bile duct dilatation. No reports of weight loss or loss of appetite. Past medical history: Hypertension, heroin abuse Past surgical history: Denies Allergies: Diphenhydramine Social history: Smokes tobacco half a pack per day for over 30 years, uses heroin: "sniffs" 10 bags a day for over 10 years, last use was last week, patient denies IV drug use and EtOH. Family history: Sister lung cancer Medications: Reviewed as per MAR ROS: Systems reviewed a positive finding see HPI Past Patient History - Infectious Disease Hx of Infectious Diseases: None - Tetanus Immunizations Tetanus Immunization: Unknown - Past Social History Smoking Status: Heavy Smoker > 10 Cigarettes Daily - CARDIAC Hx Hypertension: Yes - PULMONARY Hx Asthma: Yes - MUSCULOSKELETAL/RHEUMATOLOGICAL Hx Back Pain: Yes Hx Falls: No - PSYCHIATRIC Hx Substance Use: Yes - SURGICAL HISTORY Hx Surgeries: No - ANESTHESIA Hx Anesthesia: No Hx Anesthesia Reactions: No Hx Malignant Hyperthermia: No Meds Allergies/Adverse Reactions: Allergies Allergy/AdvReac Type Severity Reaction Status Date / Time diphenhydramine Allergy ITCHING Verified 09/03/17 15:42 - Medications Medications: Current Medications Clonazepam (Klonopin) 1 mg PO BID PRN; Protocol PRN Reason: Other Clonidine HCl (Catapres) 0.3 mg PO BID [facility] Last Admin: 09/04/17 09:08 Dose: 0.3 mg Hydroxyzine HCl (Atarax) 50 mg PO Q12H PRN PRN Reason: Other Sodium Chloride/ Potassium (Chloride/Sodium Chloride) 1,040 mls @ 125 mls/hr IV .Q8H20M [facility] Lorazepam (Ativan) 2 mg IVP Q4H PRN; Protocol PRN Reason: Agitation Nitrofurantoin Macrocrystals (Macrobid) 100 mg PO Q12 ADRIANO PRN Reason: Protocol Ondansetron HCl (Zofran Inj) 4 mg IVP Q4H PRN PRN Reason: Nausea/Vomiting Pantoprazole Sodium (Protonix Inj) 40 mg IVP DAILY [facility] Last Admin: 09/04/17 09:08 Dose: 40 mg Physical Exam - Constitutional Appears: No Acute Distress - Head Exam Head Exam: NORMOCEPHALIC - Eye Exam Eye Exam: Normal appearance. absent: Scleral icterus - ENT Exam ENT Exam: Mucous Membranes Moist - Neck Exam Neck exam: Positive for: Normal Inspection - Respiratory Exam Respiratory Exam: Clear to Auscultation Bilateral, NORMAL BREATHING PATTERN. absent: Respiratory Distress - Cardiovascular Exam Cardiovascular Exam: +S1, +S2 - GI/Abdominal Exam GI & Abdominal Exam: Normal Bowel Sounds, Soft. absent: Distended, Guarding, Organomegaly, Rebound, Tenderness - Extremities Exam Extremities exam: Positive for: pedal pulses present. Negative for: calf tenderness, pedal edema - Neurological Exam Neurological exam: Alert, Oriented x3 - Skin Skin Exam: Dry, Warm Results - Vital Signs Recent Vital Signs: Last Vital Signs Temp 98.6 F 09/04/17 08:10 Pulse 82 09/04/17 10:00 Resp 18 09/04/17 08:10 BP 125/86 09/04/17 08:10 Pulse Ox 98 09/04/17 08:10 - Labs Result Diagrams: 09/04/17 04:35 09/04/17 04:35 Labs: Laboratory Results - last 24 hr 09/04/17 09/04/17 09/04/17 04:35 04:35 04:35 WBC 8.3 RBC 4.89 Hgb 14.3 Hct 43.0 MCV 87.9 MCH 29.2 MCHC 33.3 RDW 14.8 H Plt Count 203 MPV 10.6 Gran % 63.3 Lymph % (Auto) 25.2 [place] % (Auto) 9.4 H Eos % (Auto) 2.0 Baso % (Auto) 0.1 Gran # 5.26 Lymph # (Auto) 2.1 [place] # (Auto) 0.8 H Eos # (Auto) 0.2 Baso # (Auto) 0.01 Sodium 143 Potassium 3.3 L Chloride 106 Carbon Dioxide 30 Anion Gap 10 BUN 13 Creatinine 0.8 Est GFR ( Amer) > 60 Est GFR (Non-Af Amer) > 60 Random Glucose 104 Calcium 11.5 H Phosphorus 2.7 Magnesium 2.3 H Total Bilirubin 1.8 H Direct Bilirubin 0.5 H AST 23 ALT 23 Alkaline Phosphatase 67 Lactate Dehydrogenase Total Creatine Kinase Troponin I 0.01 Total Protein 7.0 Albumin 3.8 Globulin 3.1 Albumin/Globulin Ratio 1.2 Triglycerides 91 Cholesterol 185 LDL Cholesterol Direct 116 HDL Cholesterol 39 Free T4 TSH 3rd Generation < 0.02 L Urine Color Urine Appearance Urine pH Ur Specific [place] Urine Protein Urine Glucose (UA) Urine Ketones Urine Blood Urine Nitrate Urine Bilirubin Urine Urobilinogen Ur Leukocyte Esterase Urine RBC Urine WBC Ur Epithelial Cells Calcium Oxalate Crystal Urine Bacteria Urine Opiates Screen Urine Methadone Screen Ur Barbiturates Screen Ur Phencyclidine Scrn Ur Amphetamines Screen U Benzodiazepines Scrn U Oth Cocaine Metabols U Cannabinoids Screen 09/04/17 09/04/17 09/04/17 07:30 12:00 13:30 WBC RBC Hgb Hct MCV MCH MCHC RDW Plt Count MPV Gran % Lymph % (Auto) [place] % (Auto) Eos % (Auto) Baso % (Auto) Gran # Lymph # (Auto) [place] # (Auto) Eos # (Auto) Baso # (Auto) Sodium Potassium Chloride Carbon Dioxide Anion Gap BUN Creatinine Est GFR ( Amer) Est GFR (Non-Af Amer) Random Glucose Calcium Phosphorus Magnesium Total Bilirubin Direct Bilirubin AST ALT Alkaline Phosphatase Lactate Dehydrogenase 298 L Total Creatine Kinase 25 L Troponin I < 0.01 Total Protein Albumin Globulin Albumin/Globulin Ratio Triglycerides Cholesterol LDL Cholesterol Direct HDL Cholesterol Free T4 1.12 TSH 3rd Generation Urine Color Dark yellow Urine Appearance Cloudy Urine pH 6.5 Ur Specific [place] 1.020 Urine Protein Trace H Urine Glucose (UA) Negative Urine Ketones Trace H Urine Blood Small H Urine Nitrate Negative Urine Bilirubin Small H Urine Urobilinogen 2.0 H Ur Leukocyte Esterase Large H Urine RBC 1 - 3 Urine WBC Tntc Ur Epithelial Cells 0 - 2 Calcium Oxalate Crystal Few Urine Bacteria Many Urine Opiates Screen Urine Methadone Screen Ur Barbiturates Screen Ur Phencyclidine Scrn Ur Amphetamines Screen U Benzodiazepines Scrn U Oth Cocaine Metabols U Cannabinoids Screen 09/04/17 13:30 WBC RBC Hgb Hct MCV MCH MCHC RDW Plt Count MPV Gran % Lymph % (Auto) [place] % (Auto) Eos % (Auto) Baso % (Auto) Gran # Lymph # (Auto) [place] # (Auto) Eos # (Auto) Baso # (Auto) Sodium Potassium Chloride Carbon Dioxide Anion Gap BUN Creatinine Est GFR ( Amer) Est GFR (Non-Af Amer) Random Glucose Calcium Phosphorus Magnesium Total Bilirubin Direct Bilirubin AST ALT Alkaline Phosphatase Lactate Dehydrogenase Total Creatine Kinase Troponin I Total Protein Albumin Globulin Albumin/Globulin Ratio Triglycerides Cholesterol LDL Cholesterol Direct HDL Cholesterol Free T4 TSH 3rd Generation Urine Color Urine Appearance Urine pH Ur Specific [place] Urine Protein Urine Glucose (UA) Urine Ketones Urine Blood Urine Nitrate Urine Bilirubin Urine Urobilinogen Ur Leukocyte Esterase Urine RBC Urine WBC Ur Epithelial Cells Calcium Oxalate Crystal Urine Bacteria Urine Opiates Screen Positive H Urine Methadone Screen Negative Ur Barbiturates Screen Negative Ur Phencyclidine Scrn Negative Ur Amphetamines Screen Negative U Benzodiazepines Scrn Negative U Oth Cocaine Metabols Positive H U Cannabinoids Screen Negative Assessment & Plan - Assessment and Plan (Free Text) Assessment: Assessment: Abdominal pain Cholelithiasis w/ Dilated common bile duct but no evidence of CBD stones on ultrasound Heroin abuse Hypertension UTI, on Macrobid Plan: Currently nothing by mouth, continue IVF awaiting MRI/MRCP GI prophylaxis Monitor LFTs SCDs On Zofran when necessary Observe for drug withdrawal, on Ativan when necessary Case discussed with medical team. Thank you for this consult and for allowing us to participate in your patient's care, further recommendations based on clinical course. Seen and discussed with Dr. Zelaya <Monroe Zelaya V - Last Filed: 09/04/17 23:50> Meds - Medications Medications: Current Medications Clonazepam (Klonopin) 1 mg PO BID PRN; Protocol PRN Reason: Other Clonidine HCl (Catapres) 0.3 mg PO BID [facility] Last Admin: 09/04/17 17:14 Dose: 0.3 mg Hydroxyzine HCl (Atarax) 50 mg PO Q12H PRN PRN Reason: Other Potassium Chloride 20 meq/ (Sodium Chloride) 1,010 mls @ 125 mls/hr IV .Q8H5M [facility] Last Admin: 09/04/17 23:20 Dose: 125 mls/hr Nitrofurantoin Macrocrystals (Macrobid) 100 mg PO Q12 ADRIANO PRN Reason: Protocol Last Admin: 09/04/17 21:16 Dose: 100 mg Ondansetron HCl (Zofran Inj) 4 mg IVP Q4H PRN PRN Reason: Nausea/Vomiting Pantoprazole Sodium (Protonix Inj) 40 mg IVP DAILY [facility] Last Admin: 09/04/17 09:08 Dose: 40 mg Results - Vital Signs Recent Vital Signs: Last Vital Signs Temp 98.4 F 09/04/17 18:00 Pulse 83 09/04/17 18:00 Resp 19 09/04/17 18:00 BP 134/94 H 09/04/17 18:00 Pulse Ox 95 09/04/17 18:00 - Labs Result Diagrams: 09/04/17 04:35 09/04/17 04:35 Labs: Laboratory Results - last 24 hr 09/04/17 09/04/17 09/04/17 04:35 04:35 04:35 WBC RBC Hgb Hct MCV MCH MCHC RDW Plt Count MPV Gran % Lymph % (Auto) [place] % (Auto) Eos % (Auto) Baso % (Auto) Gran # Lymph # (Auto) [place] # (Auto) Eos # (Auto) Baso # (Auto) Sodium 143 Potassium 3.3 L Chloride 106 Carbon Dioxide 30 Anion Gap 10 BUN 13 Creatinine 0.8 Est GFR ( Amer) > 60 Est GFR (Non-Af Amer) > 60 Random Glucose 104 Hemoglobin A1c 5.6 Calcium 11.5 H Phosphorus 2.7 Magnesium 2.3 H Total Bilirubin 1.8 H Direct Bilirubin 0.5 H AST 23 ALT 23 Alkaline Phosphatase 67 Lactate Dehydrogenase Total Creatine Kinase Troponin I 0.01 Total Protein 7.0 Albumin 3.8 Globulin 3.1 Albumin/Globulin Ratio 1.2 Triglycerides 91 Cholesterol 185 LDL Cholesterol Direct 116 HDL Cholesterol 39 Free T4 TSH 3rd Generation < 0.02 L Urine Color Urine Appearance Urine pH Ur Specific [place] Urine Protein Urine Glucose (UA) Urine Ketones Urine Blood Urine Nitrate Urine Bilirubin Urine Urobilinogen Ur Leukocyte Esterase Urine RBC Urine WBC Ur Epithelial Cells Calcium Oxalate Crystal Urine Bacteria Ur Random Calcium Urine Opiates Screen Urine Methadone Screen Ur Barbiturates Screen Ur Phencyclidine Scrn Ur Amphetamines Screen U Benzodiazepines Scrn U Oth Cocaine Metabols U Cannabinoids Screen Hepatitis A IgM Ab Hep Bs Antigen Hep B Core IgM Ab Hepatitis C Antibody 09/04/17 09/04/17 09/04/17 04:35 07:30 10:50 WBC 8.3 RBC 4.89 Hgb 14.3 Hct 43.0 MCV 87.9 MCH 29.2 MCHC 33.3 RDW 14.8 H Plt Count 203 MPV 10.6 Gran % 63.3 Lymph % (Auto) 25.2 [place] % (Auto) 9.4 H Eos % (Auto) 2.0 Baso % (Auto) 0.1 Gran # 5.26 Lymph # (Auto) 2.1 [place] # (Auto) 0.8 H Eos # (Auto) 0.2 Baso # (Auto) 0.01 Sodium Potassium Chloride Carbon Dioxide Anion Gap BUN Creatinine Est GFR ( Amer) Est GFR (Non-Af Amer) Random Glucose Hemoglobin A1c Calcium Phosphorus Magnesium Total Bilirubin Direct Bilirubin AST ALT Alkaline Phosphatase Lactate Dehydrogenase Total Creatine Kinase Troponin I Total Protein Albumin Globulin Albumin/Globulin Ratio Triglycerides Cholesterol LDL Cholesterol Direct HDL Cholesterol Free T4 1.12 TSH 3rd Generation Urine Color Urine Appearance Urine pH Ur Specific [place] Urine Protein Urine Glucose (UA) Urine Ketones Urine Blood Urine Nitrate Urine Bilirubin Urine Urobilinogen Ur Leukocyte Esterase Urine RBC Urine WBC Ur Epithelial Cells Calcium Oxalate Crystal Urine Bacteria Ur Random Calcium Urine Opiates Screen Urine Methadone Screen Ur Barbiturates Screen Ur Phencyclidine Scrn Ur Amphetamines Screen U Benzodiazepines Scrn U Oth Cocaine Metabols U Cannabinoids Screen Hepatitis A IgM Ab Negative Hep Bs Antigen Negative Hep B Core IgM Ab Negative Hepatitis C Antibody Negative 09/04/17 09/04/17 09/04/17 12:00 13:30 13:30 WBC RBC Hgb Hct MCV MCH MCHC RDW Plt Count MPV Gran % Lymph % (Auto) [place] % (Auto) Eos % (Auto) Baso % (Auto) Gran # Lymph # (Auto) [place] # (Auto) Eos # (Auto) Baso # (Auto) Sodium Potassium Chloride Carbon Dioxide Anion Gap BUN Creatinine Est GFR ( Amer) Est GFR (Non-Af Amer) Random Glucose Hemoglobin A1c Calcium Phosphorus Magnesium Total Bilirubin Direct Bilirubin AST ALT Alkaline Phosphatase Lactate Dehydrogenase 298 L Total Creatine Kinase 25 L Troponin I < 0.01 Total Protein Albumin Globulin Albumin/Globulin Ratio Triglycerides Cholesterol LDL Cholesterol Direct HDL Cholesterol Free T4 TSH 3rd Generation Urine Color Dark yellow Urine Appearance Cloudy Urine pH 6.5 Ur Specific [place] 1.020 Urine Protein Trace H Urine Glucose (UA) Negative Urine Ketones Trace H Urine Blood Small H Urine Nitrate Negative Urine Bilirubin Small H Urine Urobilinogen 2.0 H Ur Leukocyte Esterase Large H Urine RBC 1 - 3 Urine WBC Tntc Ur Epithelial Cells 0 - 2 Calcium Oxalate Crystal Few Urine Bacteria Many Ur Random Calcium Urine Opiates Screen Positive H Urine Methadone Screen Negative Ur Barbiturates Screen Negative Ur Phencyclidine Scrn Negative Ur Amphetamines Screen Negative U Benzodiazepines Scrn Negative U Oth Cocaine Metabols Positive H U Cannabinoids Screen Negative Hepatitis A IgM Ab Hep Bs Antigen Hep B Core IgM Ab Hepatitis C Antibody 09/04/17 13:33 WBC RBC Hgb Hct MCV MCH MCHC RDW Plt Count MPV Gran % Lymph % (Auto) [place] % (Auto) Eos % (Auto) Baso % (Auto) Gran # Lymph # (Auto) [place] # (Auto) Eos # (Auto) Baso # (Auto) Sodium Potassium Chloride Carbon Dioxide Anion Gap BUN Creatinine Est GFR ( Amer) Est GFR (Non-Af Amer) Random Glucose Hemoglobin A1c Calcium Phosphorus Magnesium Total Bilirubin Direct Bilirubin AST ALT Alkaline Phosphatase Lactate Dehydrogenase Total Creatine Kinase Troponin I Total Protein Albumin Globulin Albumin/Globulin Ratio Triglycerides Cholesterol LDL Cholesterol Direct HDL Cholesterol Free T4 TSH 3rd Generation Urine Color Urine Appearance Urine pH Ur Specific [place] Urine Protein Urine Glucose (UA) Urine Ketones Urine Blood Urine Nitrate Urine Bilirubin Urine Urobilinogen Ur Leukocyte Esterase Urine RBC Urine WBC Ur Epithelial Cells Calcium Oxalate Crystal Urine Bacteria Ur Random Calcium 25.6 Urine Opiates Screen Urine Methadone Screen Ur Barbiturates Screen Ur Phencyclidine Scrn Ur Amphetamines Screen U Benzodiazepines Scrn U Oth Cocaine Metabols U Cannabinoids Screen Hepatitis A IgM Ab Hep Bs Antigen Hep B Core IgM Ab Hepatitis C Antibody Attending/Attestation - Attestation I have personally seen and examined this patient.: Yes I have fully participated in the care of the patient.: Yes I have reviewed all pertinent clinical information: Yes Notes (Text): This is an addendum to GI progress report dictated by Kareen Pham APN.The patient was seen and examined earlier. Medical records, lab studies, imagings were reviewed. Last 24 hours events reviewed. Agreed with the above treatment plan as outlined in Kareen Pham APN's notes the with the addition of the following
[2017-09-04 17:04] LABS: HEPATITIS B SURFACE AG Negative (NEGATIVE)
[2017-09-04 17:09] LABS: HEPATITIS A IGM NEGATIVE (NEGATIVE)
[2017-09-04 17:21] LABS: HEPATITIS C ANTIBODY NEGATIVE (NEGATIVE)
[2017-09-04 17:31] LABS: HEPATITIS B CORE AB NEGATIVE (NEGATIVE)
[2017-09-05 06:28] LABS: BASO # 0.02 K/mm3 (0.0-2.0); BASO % 0.3 % (0.0-3.0); EOS # 0.2 (0.0-0.7); EOS % 2.8 % (1.5-5.0); GRAN # 4.19 (1.4-6.5); GRAN % 56.4 % (50.0-68.0); LYMPH # 2.5 (1.2-3.4); LYMPH % 33.4 % (22.0-35.0); MEAN CELL VOLUME 88.6 fl (80.0-105.0); MEAN CORPUSCULAR HGB CONC 32.7 g/dl (31.0-37.0); MEAN PLATELET VOLUME 11.1 fl (7.0-11.0); MONO # 0.5 (0.1-0.6); MONO % 7.1 % (1.0-6.0); RBC 4.48 10^6/uL (3.5-6.1); RED CELL DISTRIBUTION WIDTH 14.7 % (11.5-14.5); WHITE BLOOD COUNT 7.4 10^3/ul (4.5-11.0)
[2017-09-05 06:55] LABS: ALB/GLOB RATIO 1.2 (1.1-1.8); ALBUMIN 3.4 g/dL (3.0-4.8); ALT/SGPT 24 U/L (7-56); AST/SGOT 19 U/L (14-36); BLOOD UREA NITROGEN 15 mg/dL (7-21); CALCIUM 10.9 mg/dL (8.4-10.5); GFR AFRICAN-AMERICAN > 60; GFR NON-AFRICAN AMERICAN > 60
--- NOTE | 2017-09-05 07:45 | CP.PCM.PN ---
Subjective - Date & Time of Evaluation Date of Evaluation: 09/05/17 Time of Evaluation: 07:42 - Subjective Subjective: Surgery Progress Note: Dr. Zurita Patient seen and assessed at bedside. No acute events overnight. Patient endorses appetite and requests that her diet be advanced after all procedures done. She denies fevers, chills, chest pain, SOB, abdominal pain, N/V/D/C, changes in UOP, or any skin changes. Objective - Vital Signs/Intake and Output Vital Signs (last 24 hours): Temp Pulse Resp BP Pulse Ox 98.4 F 64 19 134/94 H 95 09/04/17 18:00 09/05/17 06:00 09/04/17 18:00 09/04/17 18:00 09/04/17 18:00 Intake and Output: 09/05/17 09/05/17 06:59 18:59 Intake Total 360 Balance 360 - Medications Medications: Current Medications Clonazepam (Klonopin) 1 mg PO BID PRN; Protocol PRN Reason: Other Clonidine HCl (Catapres) 0.3 mg PO BID [facility] Last Admin: 09/04/17 17:14 Dose: 0.3 mg Hydroxyzine HCl (Atarax) 50 mg PO Q12H PRN PRN Reason: Other Potassium Chloride 20 meq/ (Sodium Chloride) 1,010 mls @ 125 mls/hr IV .Q8H5M [facility] Last Admin: 09/04/17 23:20 Dose: 125 mls/hr Nitrofurantoin Macrocrystals (Macrobid) 100 mg PO Q12 ADRIANO PRN Reason: Protocol Last Admin: 09/04/17 21:16 Dose: 100 mg Ondansetron HCl (Zofran Inj) 4 mg IVP Q4H PRN PRN Reason: Nausea/Vomiting Pantoprazole Sodium (Protonix Inj) 40 mg IVP DAILY [facility] Last Admin: 09/04/17 09:08 Dose: 40 mg - Labs Labs: 09/05/17 05:30 09/05/17 05:30 PT 12.6 SECONDS (9.4-12.5) H 09/03/17 16:30 INR 1.10 (0.93-1.08) H 09/03/17 16:30 APTT 32.5 Seconds (25.1-36.5) 09/03/17 16:30 - Constitutional Appears: Non-toxic, No Acute Distress - Head Exam Head Exam: ATRAUMATIC, NORMOCEPHALIC - Eye Exam Eye Exam: EOMI, Normal appearance - ENT Exam ENT Exam: Mucous Membranes Moist - Neck Exam Neck Exam: Full ROM - Respiratory Exam Respiratory Exam: NORMAL BREATHING PATTERN. absent: Accessory Muscle Use, Respiratory Distress - Cardiovascular Exam Cardiovascular Exam: REGULAR RHYTHM. absent: Bradycardia, Tachycardia - GI/Abdominal Exam GI & Abdominal Exam: Soft, Normal Bowel Sounds. absent: Distended, Firm, Guarding, Rigid, Tenderness, Rebound - Neurological Exam Neurological Exam: Alert, Awake, Oriented x3 - Psychiatric Exam Psychiatric exam: Normal Affect, Normal Mood - Skin Skin Exam: Dry, Intact, Normal Color, Warm Assessment and Plan - Assessment and Plan (Free Text) Assessment: 52 year old AA female with dilated CBD Plan: -NPO for MRCP; Tolerated CLD overnight; Will ADAT post MRCP -Continue IVF -F/U with GI recommendations and MRCP results. -Medical management per primary care team -Will discuss with attending Shelby Renee PGY1
--- NOTE | 2017-09-05 09:08 | CARD ---
APPROVED REPORT EXAM: Two-dimensional and M-mode echocardiogram with Doppler and color Doppler. Other Information Quality : AverageRhythm : INDICATION Chest Pain 2D DIMENSIONS Left Atrium (2D)4.3 (1.6-4.0cm)IVSd1.2 (0.7-1.1cm) LVDd4.2 (3.9-5.9cm)PWd1.2 (0.7-1.1cm) LVDs2.9 (2.5-4.0cm)FS (%) 30.5 % LVEF (%)58.0 (>50%) M-Mode DIMENSIONS Aortic Root3.50 (2.2-3.7cm)Aortic Cusp Exc.2.00 (1.5-2.0cm) Aortic Valve AoV Peak Ggsnljve416.0cm/s Mitral Valve MV E Russgvpt63.3cm/sMV A Xlwzkian55.6cm/sE/A ratio0.8 TDI Lateral E' Peak V7.60cm/sMedial E' Peak V5.95cm/sE/Lateral E'6.9 E/Medial E'8.8 Pulmonary Valve PV Peak Bxmtrnuw01.1cm/sPV Peak Grad.2mmHg Tricuspid Valve TR Peak [id number]/sRAP [id number] Peak Gr.20mmHg [id number] LEFT VENTRICLE The left ventricle is normal size. There is borderline concentric left ventricular hypertrophy. The left ventricular function is normal. The left ventricular ejection fraction is within the normal range. There is normal LV segmental wall motion. RIGHT VENTRICLE The right ventricle is normal size. ATRIA The left atrium size is normal. The right atrium size is normal. The interatrial septum is intact with no evidence for an atrial septal defect. AORTIC VALVE The aortic valve is normal in structure. MITRAL VALVE The mitral valve is normal in structure. Mitral regurgitation is trace. TRICUSPID VALVE The tricuspid valve is normal in structure. There is trace tricuspid regurgitation. PULMONIC VALVE The pulmonary valve is normal in structure. GREAT VESSELS The aortic root is normal in size. PERICARDIAL EFFUSION There is no pericardial effusion. <Conclusion> The left ventricle is normal size. There is borderline concentric left ventricular hypertrophy. The left ventricular function is normal.
[2017-09-05] MEDS ORDERED: Gadodiamide 287 MG/ML VIAL (20ML) IV ONE (10:22)
--- NOTE | 2017-09-05 12:46 | MRI ---
PROCEDURE: MRI Abdomen with and without contrast plus MRCP imaging HISTORY: Dilated CBD COMPARISON: None available. TECHNIQUE: Multisequence, multiplanar MR images of the abdomen with and without gadolinium contrast enhancement. FINDINGS: LIVER: There is a 10 mm simple cyst in the right lobe of the liver. GALLBLADDER: The common bile duct is mildly dilated measuring 9 mm. There is no evidence of an obstructing lesion or stone. The pancreatic duct appears to empty separately into the duodenum. This represents a normal variation of pancreatic divisum. This is seen on coronal image 13 series 10 . SPLEEN: Unremarkable. PANCREAS: Unremarkable. ADRENALS: Unremarkable. KIDNEYS: Unremarkable. AORTA: No aneurysm. ASCITES: None. PERITONEUM: Unremarkable. LYMPH NODES: Unremarkable. OTHER FINDINGS: None. IMPRESSION: Dilated common bile duct measuring 9 mm with no obstructing stone or mass.
[2017-09-05 14:32] VITALS: TEMP 98.6
[2017-09-05] MEDS ORDERED: Midazolam 2 MG/2 ML VIAL ONE (15:30)
[2017-09-05] MEDS ORDERED: Succinylcholine 200 mg/10 ml Inj IV ONE (15:39)
[2017-09-05] MEDS ORDERED: Propofol 10 mg/ml Inj (20 ML) ONE (15:47)
--- NOTE | 2017-09-05 16:32 | CP.PCM.PN ---
<Sherine Coker - Last Filed: 09/05/17 16:53> Subjective - Date & Time of Evaluation Date of Evaluation: 09/05/17 Time of Evaluation: 16:32 - Subjective Subjective: Internal Medicine Progress Note: Patient seen and examined at bedside. Per nursing no acute events overnight. Patient is NPO for MRCP today. Patient is also for EGD with EUS. She states that she is hungry and wants to eat. Offers no complaints at this time. Denies headaches, dizziness, cp, palpitations, sob, abdominal pain, urinary symptoms, changes in bowel habits. Objective - Vital Signs/Intake and Output Vital Signs (last 24 hours): Temp Pulse Resp BP Pulse Ox 98.6 F 58 L 12 115/74 100 09/05/17 14:26 09/05/17 14:26 09/05/17 14:26 09/05/17 14:26 09/05/17 15:41 Intake and Output: 09/05/17 09/05/17 06:59 18:59 Intake Total 360 Balance 360 - Medications Medications: Current Medications Clonazepam (Klonopin) 1 mg PO BID PRN; Protocol PRN Reason: Other Clonidine HCl (Catapres) 0.3 mg PO BID [facility] Last Admin: 09/05/17 09:23 Dose: 0.3 mg Hydroxyzine HCl (Atarax) 50 mg PO Q12H PRN PRN Reason: Other Potassium Chloride 20 meq/ (Sodium Chloride) 1,010 mls @ 125 mls/hr IV .Q8H5M [facility] Last Admin: 09/05/17 07:47 Dose: 125 mls/hr Nitrofurantoin Macrocrystals (Macrobid) 100 mg PO Q12 ADRIANO PRN Reason: Protocol Last Admin: 09/05/17 09:23 Dose: 100 mg Ondansetron HCl (Zofran Inj) 4 mg IVP Q4H PRN PRN Reason: Nausea/Vomiting Pantoprazole Sodium (Protonix Inj) 40 mg IVP DAILY [facility] Last Admin: 09/05/17 09:24 Dose: 40 mg - Labs Labs: 09/05/17 05:30 09/05/17 05:30 PT 12.6 SECONDS (9.4-12.5) H 09/03/17 16:30 INR 1.10 (0.93-1.08) H 09/03/17 16:30 APTT 32.5 Seconds (25.1-36.5) 09/03/17 16:30 - Additional Findings Additional findings: - Constitutional Appears: Non-toxic, No Acute Distress - Head Exam Head Exam: ATRAUMATIC, NORMOCEPHALIC - Eye Exam Eye Exam: EOMI, PERRL. absent: Conjunctival injection, Nystagmus, Scleral icterus Pupil Exam: NORMAL ACCOMODATION, PERRL. absent: Fixed, Irregular, Miosis, Mydriatic, Unequal - ENT Exam ENT Exam: Mucous Membranes Moist - Neck Exam Neck exam: Positive for: Full Rom - Respiratory Exam Respiratory Exam: Clear to Auscultation Bilateral, NORMAL BREATHING PATTERN. absent: Accessory Muscle Use, Rhonchi, Wheezes, Respiratory Distress, Stridor - Cardiovascular Exam Cardiovascular Exam: RRR, +S1, +S2. absent: Systolic Murmur - GI/Abdominal Exam GI & Abdominal Exam: Normal Bowel Sounds, Soft, Tenderness (TTP in epigastric region). absent: Distended, Firm, Mass, Organomegaly, Rebound, Rigid Additional comments: rounded abdomen, obese female - Extremities Exam Extremities exam: Positive for: normal inspection. Negative for: calf tenderness, pedal edema - Back Exam Back exam: NORMAL INSPECTION. absent: CVA tenderness (L), CVA tenderness (R) - Neurological Exam Neurological exam: Alert, Oriented x3, Reflexes Normal Assessment and Plan - Assessment and Plan (Free Text) Assessment: Patient is a 52 year old female with PMH HTN, heroin abuse, presents for cp, nausea/vomiting, dilated CBD: Chest pain, r/o ACS: - Troponins negative x 3 - EKG NSR, no ST.T wave abnormalities, official read pending. F/u EKG in AM. - D dimer low, LE duplex neg for DVT Nausea and vomiting/epigastric pain: - Abdominal US shows cholelithiasis (multiple) and dilated CBD 10 mm without evidence of choledocholithiasis, without thickened gallbladder wall, no pericholecystic fluid. - Patient is NPO for MRCP today - Will likely go for EGD with EUS - Surgery and GI consulted. F/u recommendations - Continue Protonix IV Dilated Common Bile Duct 2/2 opium induced vs obstructive pathology - GI consulted. F/u recommendations - For MRCP today Heroin/Opioid abuse: - COWS score low, 3 currently - Ativan prn, klonopin prn, Atarax prn - Cessation advised Hypokalemia -Added potassium to IV fluids -F/U serial CMP Hx of HTN: - Continue clonidine PPX: Protonix, SCDs Diet: NPO <Susan Martinez - Last Filed: 09/06/17 07:18> Objective - Vital Signs/Intake and Output Vital Signs (last 24 hours): Temp Pulse Resp BP Pulse Ox 98.6 F 52 L 13 142/81 96 09/05/17 17:34 09/05/17 17:34 09/05/17 17:34 09/05/17 17:34 09/05/17 17:34 - Labs Labs: 09/05/17 05:30 09/05/17 05:30 PT 12.6 SECONDS (9.4-12.5) H 09/03/17 16:30 INR 1.10 (0.93-1.08) H 09/03/17 16:30 APTT 32.5 Seconds (25.1-36.5) 09/03/17 16:30 Attending/Attestation - Attestation I have personally seen and examined this patient.: Yes I have fully participated in the care of the patient.: Yes I have reviewed all pertinent clinical information, including history, physical exam and plan: Yes Notes (Text): 09/05/17 52 year old female with past medical history of hypertension and heroin abuse who presented with complaint of chest pain and nausea and vomiting. Serial cardiac enzymes were negative and ACS was ruled out. US abd showed dilated CBD with cholelithiasis. She is for MRCP +/- EGD/EUS today. She was counselled on risks of continued substance abuse. Her symptoms have improved since admission; possibly d/c planning pending above studies. Susan Martinez MD Hospitalist.
--- NOTE | 2017-09-05 16:39 | CP.PCM.DIS ---
<Sherine Coker - Last Filed: 09/09/17 15:32> Provider - Provider Date of Admission: 09/03/17 19:35 Attending physician: Mekhi Levi MD Primary care physician: Leonel Rogers MD Consults: GI: Nathalie General Surgery: Zurita Time Spent in preparation of Discharge (in minutes): 35 Hospital Course - Lab Results Lab Results: Most Recent Lab Values WBC 7.4 10^3/ul (4.5-11.0) 09/05/17 05:30 RBC 4.48 10^6/uL (3.5-6.1) 09/05/17 05:30 Hgb 13.0 g/dL (12.0-16.0) 09/05/17 05:30 Hct 39.7 % (36.0-48.0) 09/05/17 05:30 MCV 88.6 fl (80.0-105.0) 09/05/17 05:30 MCH 29.0 pg (25.0-35.0) 09/05/17 05:30 MCHC 32.7 g/dl (31.0-37.0) 09/05/17 05:30 RDW 14.7 % (11.5-14.5) H 09/05/17 05:30 Plt Count 197 10^3/uL (120.0-450.0) 09/05/17 05:30 MPV 11.1 fl (7.0-11.0) H 09/05/17 05:30 Gran % 56.4 % (50.0-68.0) 09/05/17 05:30 Lymph % (Auto) 33.4 % (22.0-35.0) 09/05/17 05:30 [place] % (Auto) 7.1 % (1.0-6.0) H 09/05/17 05:30 Eos % (Auto) 2.8 % (1.5-5.0) 09/05/17 05:30 Baso % (Auto) 0.3 % (0.0-3.0) 09/05/17 05:30 Gran # 4.19 (1.4-6.5) 09/05/17 05:30 Lymph # (Auto) 2.5 (1.2-3.4) 09/05/17 05:30 [place] # (Auto) 0.5 (0.1-0.6) 09/05/17 05:30 Eos # (Auto) 0.2 (0.0-0.7) 09/05/17 05:30 Baso # (Auto) 0.02 K/mm3 (0.0-2.0) 09/05/17 05:30 PT 12.6 SECONDS (9.4-12.5) H 09/03/17 16:30 INR 1.10 (0.93-1.08) H 09/03/17 16:30 APTT 32.5 Seconds (25.1-36.5) 09/03/17 16:30 D-Dimer, Quantitative < 200 ng/mL (0-243) 09/03/17 16:30 Sodium 142 mmol/L (132-148) 09/05/17 05:30 Potassium 3.5 mmol/L (3.6-5.0) L 09/05/17 05:30 Chloride 107 mmol/L (98-107) 09/05/17 05:30 Carbon Dioxide 27 mmol/L (21-33) 09/05/17 05:30 Anion Gap 12 (10-20) 09/05/17 05:30 BUN 15 mg/dL (7-21) 09/05/17 05:30 Creatinine 0.8 mg/dl (0.7-1.2) 09/05/17 05:30 Est GFR ( Amer) > 60 09/05/17 05:30 Est GFR (Non-Af Amer) > 60 09/05/17 05:30 Random Glucose 90 mg/dL (70-110) 09/05/17 05:30 Hemoglobin A1c 5.6 % (4.2-6.5) 09/04/17 04:35 Calcium 10.9 mg/dL (8.4-10.5) H 09/05/17 05:30 Phosphorus 2.7 mg/dL (2.5-4.5) 09/05/17 05:30 Magnesium 2.2 mg/dL (1.7-2.2) 09/05/17 05:30 Total Bilirubin 1.7 mg/dL (0.2-1.3) H 09/05/17 05:30 Direct Bilirubin 0.5 mg/dL (0.0-0.4) H 09/04/17 04:35 AST 19 U/L (14-36) 09/05/17 05:30 ALT 24 U/L (7-56) 09/05/17 05:30 Alkaline Phosphatase 59 U/L (38-126) 09/05/17 05:30 Lactate Dehydrogenase 298 U/L (333-699) L 09/04/17 12:00 Total Creatine Kinase 25 U/L (35-230) L 09/04/17 12:00 Troponin I < 0.01 ng/mL 09/04/17 12:00 NT-Pro-B Natriuret Pep 276 pg/mL (0-450) 09/03/17 16:30 Total Protein 6.3 g/dL (5.8-8.3) 09/05/17 05:30 Albumin 3.4 g/dL (3.0-4.8) 09/05/17 05:30 Globulin 2.9 gm/dL 09/05/17 05:30 Albumin/Globulin Ratio 1.2 (1.1-1.8) 09/05/17 05:30 Triglycerides 91 mg/dL (35-160) 09/04/17 04:35 Cholesterol 185 mg/dL (130-200) 09/04/17 04:35 LDL Cholesterol Direct 116 mg/dL (0-129) 09/04/17 04:35 HDL Cholesterol 39 mg/dL (29-60) 09/04/17 04:35 Amylase 73 U/L (35-125) 09/03/17 16:30 Lipase 40 U/L (23-300) 09/03/17 16:30 Free T4 1.12 ng/dL (0.78-2.19) 09/04/17 07:30 TSH 3rd Generation < 0.02 mIU/mL (0.46-4.68) L 09/05/17 05:30 PTH Intact Whole Molec 73 pg/mL (14-64) H 09/04/17 07:30 Urine Color Dark yellow (YELLOW) 09/04/17 13:30 Urine Appearance Cloudy (CLEAR) 09/04/17 13:30 Urine pH 6.5 (4.7-8.0) 09/04/17 13:30 Ur Specific [place] 1.020 (1.005-1.035) 09/04/17 13:30 Urine Protein Trace mg/dL (<30 mg/dL) H 09/04/17 13:30 Urine Glucose (UA) Negative mg/dL (NEGATIVE) 09/04/17 13:30 Urine Ketones Trace mg/dL (NEGATIVE) H 09/04/17 13:30 Urine Blood Small (NEGATIVE) H 09/04/17 13:30 Urine Nitrate Negative (NEGATIVE) 09/04/17 13:30 Urine Bilirubin Small (NEGATIVE) H 09/04/17 13:30 Urine Urobilinogen 2.0 E.U./dL (<1 E.U./dL) H 09/04/17 13:30 Ur Leukocyte Esterase Large Pebbles/uL (NEGATIVE) H 09/04/17 13:30 Urine RBC 1 - 3 /hpf (0-2) 09/04/17 13:30 Urine WBC Tntc /hpf (0-6) 09/04/17 13:30 Ur Epithelial Cells 0 - 2 /hpf (0-5) 09/04/17 13:30 Calcium Oxalate Crystal Few /hpf 09/04/17 13:30 Urine Bacteria Many (NEG) 09/04/17 13:30 Ur Random Calcium 25.6 mg/dL 09/04/17 13:33 Urine Opiates Screen Positive (NEGATIVE) H 09/04/17 13:30 Urine Methadone Screen Negative (NEGATIVE) 09/04/17 13:30 Ur Barbiturates Screen Negative (NEGATIVE) 09/04/17 13:30 Ur Phencyclidine Scrn Negative (NEGATIVE) 09/04/17 13:30 Ur Amphetamines Screen Negative (NEGATIVE) 09/04/17 13:30 U Benzodiazepines Scrn Negative (NEGATIVE) 09/04/17 13:30 U Oth Cocaine Metabols Positive (NEGATIVE) H 09/04/17 13:30 U Cannabinoids Screen Negative (NEGATIVE) 09/04/17 13:30 Hepatitis A IgM Ab Negative (NEGATIVE) 09/04/17 10:50 Hep Bs Antigen Negative (NEGATIVE) 09/04/17 10:50 Hep B Core IgM Ab Negative (NEGATIVE) 09/04/17 10:50 Hepatitis C Antibody Negative (NEGATIVE) 09/04/17 10:50 - Hospital Course Hospital Course: History of present illness: Patient is a 52 year old female with PMH HTN, heroin abuse, presents for nausea and vomiting for past 1 week. Last Friday, pt states that she started having vomiting episodes 1-2 nonbloody, nonbilious after she snorted her usual 10 bags of heroin. She attributed it to possibly a "bad bag" that made her sick. Denies previous such episodes. Last vomiting episode this AM. Pt also started having associated epigastric pain, relieved partially by Pepto Bismol. Pt also reports left sided chest pain, pressure like, worsens with movement and deep inspiration , nonradiating, denies associated palpitations, diaphoresis, syncope, dizziness. No prior episodes before. No prior stress test or cardiac cath. Hospital Course: Patient was admitted to med/surg and started on IV fluid hydration. Abdominal US showed cholelithiasis, moderate diffuse dilatation of CBD without evidence of choledocholithiasis, diffuse increased echogenicity in the liver that may reflect hepatic steatosis. T bili was mildly elevated. General surgery and GI consulted. Patient went for MRCP that showed dilated common bile duct measuring 9mm with no obstructing stone or mass. Patient also went for EGD with EUS with GI. Report still pending. For chest pain, troponins were negative x 3. EKG showed NSR with non specific T wave abnormality. Patient went for echo that showed borderline concentric left ventricular hypertrophy with normal LV function and size. Patient has a history of heroin use. UTOX was positive for opiates and cocaine. Cessation was strongly advised. Patient with low TSH, Free T4 was normal. Recommending repeat Thyroid studies in 4-6 weeks. Patient was also treated with Macrobid for UTI. On day of discharge, diet was advanced. Patient tolerated well. Denied any complaints. Patient instructed to follow up with PMD and GI outpatient for biopsy results. All questions and concerns were addressed. Discharge Exam - Head Exam Head Exam: ATRAUMATIC, NORMAL INSPECTION, NORMOCEPHALIC - Eye Exam Eye Exam: Normal appearance Pupil Exam: PERRL - ENT Exam ENT Exam: Mucous Membranes Moist - Respiratory Exam Respiratory Exam: Clear to PA & Lateral, NORMAL BREATHING PATTERN, UNREMARKABLE. absent: Rhonchi, Wheezes, Respiratory Distress - Cardiovascular Exam Cardiovascular Exam: REGULAR RHYTHM, +S1, +S2 - GI/Abdominal Exam GI & Abdominal Exam: Normal Bowel Sounds, Soft, Unremarkable. absent: Guarding , Rebound, Rigid, Tenderness - Extremities Exam Extremities exam: normal inspection - Neurological Exam Neurological exam: Alert, Normal Gait, Oriented x3 - Psychiatric Exam Psychiatric exam: Normal Affect, Normal Mood - Skin Skin Exam: Dry, Normal Color, Warm Discharge Plan - Discharge Medications Prescriptions: Nitrofurantoin Macrocrystals [Macrobid] 100 mg PO Q12H 6 Days #12 cap - Follow Up Plan Condition: STABLE Disposition: AGAINST MEDICAL ADVICE Instructions: Chest Pain (ED) Additional Instructions: 1. Patient is clear for discharge home 2. Continue antibiotics for Urinary tract infection, urine culture is pending 3. TSH was low with normal Free T4, please repeat Thyroid studies in 4-6 weeks 4. Please follow up with PMD within 1 week Referrals: Leonel Rogers MD [Primary Care Provider] - Follow up with primary <Susan Martinez - Last Filed: 09/15/17 07:57> Provider - Provider Date of Admission: 09/03/17 19:35 Attending physician: Mekhi Levi MD Primary care physician: Leonel Rogers MD Hospital Course - Lab Results Lab Results: Most Recent Lab Values WBC 7.4 10^3/ul (4.5-11.0) 09/05/17 05:30 RBC 4.48 10^6/uL (3.5-6.1) 09/05/17 05:30 Hgb 13.0 g/dL (12.0-16.0) 09/05/17 05:30 Hct 39.7 % (36.0-48.0) 09/05/17 05:30 MCV 88.6 fl (80.0-105.0) 09/05/17 05:30 MCH 29.0 pg (25.0-35.0) 09/05/17 05:30 MCHC 32.7 g/dl (31.0-37.0) 09/05/17 05:30 RDW 14.7 % (11.5-14.5) H 09/05/17 05:30 Plt Count 197 10^3/uL (120.0-450.0) 09/05/17 05:30 MPV 11.1 fl (7.0-11.0) H 09/05/17 05:30 Gran % 56.4 % (50.0-68.0) 09/05/17 05:30 Lymph % (Auto) 33.4 % (22.0-35.0) 09/05/17 05:30 [place] % (Auto) 7.1 % (1.0-6.0) H 09/05/17 05:30 Eos % (Auto) 2.8 % (1.5-5.0) 09/05/17 05:30 Baso % (Auto) 0.3 % (0.0-3.0) 09/05/17 05:30 Gran # 4.19 (1.4-6.5) 09/05/17 05:30 Lymph # (Auto) 2.5 (1.2-3.4) 09/05/17 05:30 [place] # (Auto) 0.5 (0.1-0.6) 09/05/17 05:30 Eos # (Auto) 0.2 (0.0-0.7) 09/05/17 05:30 Baso # (Auto) 0.02 K/mm3 (0.0-2.0) 09/05/17 05:30 PT 12.6 SECONDS (9.4-12.5) H 09/03/17 16:30 INR 1.10 (0.93-1.08) H 09/03/17 16:30 APTT 32.5 Seconds (25.1-36.5) 09/03/17 16:30 D-Dimer, Quantitative < 200 ng/mL (0-243) 09/03/17 16:30 Sodium 142 mmol/L (132-148) 09/05/17 05:30 Potassium 3.5 mmol/L (3.6-5.0) L 09/05/17 05:30 Chloride 107 mmol/L (98-107) 09/05/17 05:30 Carbon Dioxide 27 mmol/L (21-33) 09/05/17 05:30 Anion Gap 12 (10-20) 09/05/17 05:30 BUN 15 mg/dL (7-21) 09/05/17 05:30 Creatinine 0.8 mg/dl (0.7-1.2) 09/05/17 05:30 Est GFR ( Amer) > 60 09/05/17 05:30 Est GFR (Non-Af Amer) > 60 09/05/17 05:30 Random Glucose 90 mg/dL (70-110) 09/05/17 05:30 Hemoglobin A1c 5.6 % (4.2-6.5) 09/04/17 04:35 Calcium 10.9 mg/dL (8.4-10.5) H 09/05/17 05:30 Phosphorus 2.7 mg/dL (2.5-4.5) 09/05/17 05:30 Magnesium 2.2 mg/dL (1.7-2.2) 09/05/17 05:30 Total Bilirubin 1.7 mg/dL (0.2-1.3) H 09/05/17 05:30 Direct Bilirubin 0.5 mg/dL (0.0-0.4) H 09/04/17 04:35 AST 19 U/L (14-36) 09/05/17 05:30 ALT 24 U/L (7-56) 09/05/17 05:30 Alkaline Phosphatase 59 U/L (38-126) 09/05/17 05:30 Lactate Dehydrogenase 298 U/L (333-699) L 09/04/17 12:00 Total Creatine Kinase 25 U/L (35-230) L 09/04/17 12:00 Troponin I < 0.01 ng/mL 09/04/17 12:00 NT-Pro-B Natriuret Pep 276 pg/mL (0-450) 09/03/17 16:30 Total Protein 6.3 g/dL (5.8-8.3) 09/05/17 05:30 Albumin 3.4 g/dL (3.0-4.8) 09/05/17 05:30 Globulin 2.9 gm/dL 09/05/17 05:30 Albumin/Globulin Ratio 1.2 (1.1-1.8) 09/05/17 05:30 Triglycerides 91 mg/dL (35-160) 09/04/17 04:35 Cholesterol 185 mg/dL (130-200) 09/04/17 04:35 LDL Cholesterol Direct 116 mg/dL (0-129) 09/04/17 04:35 HDL Cholesterol 39 mg/dL (29-60) 09/04/17 04:35 Amylase 73 U/L (35-125) 09/03/17 16:30 Lipase 40 U/L (23-300) 09/03/17 16:30 Free T4 1.12 ng/dL (0.78-2.19) 09/04/17 07:30 TSH 3rd Generation < 0.02 mIU/mL (0.46-4.68) L 09/05/17 05:30 PTH Intact Whole Molec 73 pg/mL (14-64) H 09/04/17 07:30 PTH Related Protein 9 pg/mL (14-27) L 09/04/17 07:30 Urine Color Dark yellow (YELLOW) 09/04/17 13:30 Urine Appearance Cloudy (CLEAR) 09/04/17 13:30 Urine pH 6.5 (4.7-8.0) 09/04/17 13:30 Ur Specific [place] 1.020 (1.005-1.035) 09/04/17 13:30 Urine Protein Trace mg/dL (<30 mg/dL) H 09/04/17 13:30 Urine Glucose (UA) Negative mg/dL (NEGATIVE) 09/04/17 13:30 Urine Ketones Trace mg/dL (NEGATIVE) H 09/04/17 13:30 Urine Blood Small (NEGATIVE) H 09/04/17 13:30 Urine Nitrate Negative (NEGATIVE) 09/04/17 13:30 Urine Bilirubin Small (NEGATIVE) H 09/04/17 13:30 Urine Urobilinogen 2.0 E.U./dL (<1 E.U./dL) H 09/04/17 13:30 Ur Leukocyte Esterase Large Pebbles/uL (NEGATIVE) H 09/04/17 13:30 Urine RBC 1 - 3 /hpf (0-2) 09/04/17 13:30 Urine WBC Tntc /hpf (0-6) 09/04/17 13:30 Ur Epithelial Cells 0 - 2 /hpf (0-5) 09/04/17 13:30 Calcium Oxalate Crystal Few /hpf 09/04/17 13:30 Urine Bacteria Many (NEG) 09/04/17 13:30 Ur Random Calcium 25.6 mg/dL 09/04/17 13:33 Urine Opiates Screen Positive (NEGATIVE) H 09/04/17 13:30 Urine Methadone Screen Negative (NEGATIVE) 09/04/17 13:30 Ur Barbiturates Screen Negative (NEGATIVE) 09/04/17 13:30 Ur Phencyclidine Scrn Negative (NEGATIVE) 09/04/17 13:30 Ur Amphetamines Screen Negative (NEGATIVE) 09/04/17 13:30 U Benzodiazepines Scrn Negative (NEGATIVE) 09/04/17 13:30 U Oth Cocaine Metabols Positive (NEGATIVE) H 09/04/17 13:30 U Cannabinoids Screen Negative (NEGATIVE) 09/04/17 13:30 Hepatitis A IgM Ab Negative (NEGATIVE) 09/04/17 10:50 Hep Bs Antigen Negative (NEGATIVE) 09/04/17 10:50 Hep B Core IgM Ab Negative (NEGATIVE) 09/04/17 10:50 Hepatitis C Antibody Negative (NEGATIVE) 09/04/17 10:50 Attending/Attestation - Attestation I have personally seen and examined this patient.: Yes I have fully participated in the care of the patient.: Yes I have reviewed all pertinent clinical information, including history, physical exam and plan: Yes Notes (Text): 52 year old female with past medical history of hypertension and heroin abuse who presented with complaint of chest pain and nausea and vomiting. Serial cardiac enzymes were negative and ACS was ruled out. US abd showed dilated CBD with cholelithiasis. Today she had MRCP and EGD but shortly signed out against medical advice after. She was counselled on risks of continued substance abuse. Susan Martinez MD Hospitalist.
[2017-09-05] MEDS ORDERED: Sodium Chloride 0.9% 1,000 ML IV SCH (16:45)
[2017-09-05 16:56] VITALS: RESP 13
[2017-09-05 17:23] VITALS: O2SAT 96
[2017-09-05 17:38] VITALS: BP 142/81; PULSE 52
== END 2017-09-05 19:46 | disposition left against medical advice (07) | DRG 143 ==
LOC: ED 15:26 → ERH 19:35 → 3RNO 20:36
PROVIDERS: ADMIT Hospitalist; ATTEND Hospitalist
PROC: BF47ZZZ Ultrasonography of Pancreas (ICD-10-PCS; 2017-09-05)
PROC: 0DB68ZX Excision of Stomach, Via Natural or Artificial Opening Endoscopic, Diagnostic (ICD-10-PCS; principal; 2017-09-05 14:30)
PROC: BF43ZZZ Ultrasonography of Gallbladder and Bile Ducts (ICD-10-PCS; 2017-09-05 14:30)
DX: R07.89 Other chest pain (principal); F11.20 Opioid dependence, uncomplicated; N39.0 Urinary tract infection, site not specified; E87.6 Hypokalemia; K80.20 Calculus of gallbladder without cholecystitis without obstruction; K83.8 Other specified diseases of biliary tract; I10 Essential (primary) hypertension; K26.9 Duodenal ulcer, unspecified as acute or chronic, without hemorrhage or perforation; K31.9 Disease of stomach and duodenum, unspecified; K29.70 Gastritis, unspecified, without bleeding; B96.81 Helicobacter pylori [H. pylori] as the cause of diseases classified elsewhere; R10.13 Epigastric pain; F17.210 Nicotine dependence, cigarettes, uncomplicated; Z80.1 Family history of malignant neoplasm of trachea, bronchus and lung

== ENCOUNTER 2017-10-28 04:05 | Observation (INO) | payer MEDICAID ==
[2017-10-28 04:06] VITALS: BMI 30.7
--- NOTE | 2017-10-28 04:17 | ED PDOC ---
Arrival/HPI - General Historian: Patient - History of Present Illness Time/Duration: 1 hour Symptom Onset: Sudden Symptom Course: Improving Quality: Stabbing Severity Level: 7 Context: Sitting <Kris Johns - Last Filed: 10/28/17 05:42> <Ramírez Decker - Last Filed: 10/28/17 05:52> - General Chief Complaint: Chest Pain Time Seen by Provider: 10/28/17 04:08 - History of Present Illness Narrative History of Present Illness (Text): 52 year old female with past medical history of hypertension, cocaine use, heroine use presents with chest pain. Patient states she was seated at the bus stop 2 hours ago when she saw a raccoon got scared and had chest pain. she states the pain is stabbing in nature, midsternal, 7/10 intensity, without any radiation. She also admits to snorting cocaine 14 hours ago. Patient also says she has some shortness of breath. She denies abdominal pain, nausea, vomiting, palpitations or any other complaints at this time. 10/28/17 04:28 (Kris Johns) Past Medical History - Provider Review Nursing Documentation Reviewed: Yes - Past History Past History: No Previous - Infectious Disease Hx of Infectious Diseases: None - Tetanus Immunization Tetanus Immunization: Unknown - Cardiac Hx Cardiac Disorders: Yes Hx Hypertension: Yes - Pulmonary Hx Respiratory Disorders: Yes Hx Asthma: Yes - Musculoskeletal/Rheumatological Hx Musculoskeletal Disorders: Yes Hx Back Pain: Yes Hx Falls: No - Psychiatric Hx Substance Use: Yes Other/Comment: POLYSUBSTANCE ABUSE; ETOH/HEROIN - Anesthesia Hx Anesthesia Reactions: No Hx Malignant Hyperthermia: No <Kris Johns - Last Filed: 10/28/17 05:42> Family/Social History Family/Social History: CAD/[place] Smoking Status: Heavy Smoker > 10 Cigarettes Daily Hx Alcohol Use: Yes (OCCASSIONAL) Frequency of alcohol use: Socially Hx Substance Use: Yes Substance used: marijuana, heroin <Kris Johns - Last Filed: 10/28/17 05:42> - Physician Review Nursing Documentation Reviewed: Yes <Ramírez Decker - Last Filed: 10/28/17 05:52> Allergies/Home Meds <Kris Johns - Last Filed: 10/28/17 05:42> <Ramírez Decker - Last Filed: 10/28/17 05:52> Allergies/Adverse Reactions: Allergies diphenhydramine Allergy (Verified 09/03/17 15:42) ITCHING Review of Systems - Review of Systems Constitutional: Normal Eyes: Normal ENT: Normal Respiratory: SOB Cardiovascular: Chest Pain. absent: Palpitations, Calf Pain, Syncope Musculoskeletal: Normal Skin: Normal Neurological: Normal <Kris Johns Last Filed: 10/28/17 05:42> Physical Exam Temperature: Afebrile Blood Pressure: Hypertensive Pulse: Regular Respiratory Rate: Normal Appearance: Positive for: Well-Appearing, Non-Toxic Pain Distress: Mild Mental Status: Positive for: Alert and Oriented X 3 - Systems Exam Head: Present: Atraumatic, Normocephalic Pupils: Present: PERRL Extroacular Muscles: Present: EOMI Conjunctiva: Present: Normal Mouth: Present: Moist Mucous Membranes Neck: Present: Normal Range of Motion Respiratory/Chest: Present: Clear to Auscultation, Good Air Exchange, Rales. No : Respiratory Distress, Wheezes Cardiovascular: Present: Regular Rate and Rhythm, Normal S1, S2 Abdomen: No: Tenderness, Normal Bowel Sounds, Peritoneal Signs Lower Extremity: Present: Edema Neurological: Present: GCS=15, CN II-XII Intact Skin: Present: Warm Psychiatric: Present: Alert, Oriented x 3 <rKis Johns Last Filed: 10/28/17 05:42> Vital Signs Reviewed: Yes <Jeronimo,Ramírez Almendarez Last Filed: 10/28/17 05:52> Vital Signs Temp Pulse Resp BP Pulse Ox 10/28/17 04:19 98.3 F 76 20 170/107 H 95 Medical Decision Making - Lab Interpretations I have reviewed the lab results: Yes <Kris Johns - Last Filed: 10/28/17 05:42> - EKG Interpretation Interpreted by ED Physician: Yes Type: 12 lead EKG <JeronimoRamírez Almendarez Last Filed: 10/28/17 05:52> ED Course and Treatment: Plan -EKG, troponin, chest xray, CMP, CBC -coags -Nitrobid, Asprin -UDS, alcohol level -asses and disposition EKG Interpreted unofficial by me: AMAYAR 10/28/17 04:35 initial trop negative, Chest xray unofficial looks no active disease will admit for chest pain, rule out ACS (Kris Johns) Patient Seen With Resident: In agreement with resident note which contains more details about the patient. Patient was seen and evaluated with resident. Came up with plan and treatment together. 52 year old female presents complaining of chest pain associated with shortness of breath that began 1 hour ago. Plan: -- EKG -- Labs -- Chest X-Ray -- Aspirin, Nitro- Bid 2% Oint (Ramírez Decker) - Lab Interpretations Lab Results: 10/28/17 04:56 10/28/17 04:56 Lab Results 10/28/17 04:56: PT 12.3, INR 1.07, APTT 32.5 10/28/17 04:56: Sodium 146, Potassium 3.3 L, Chloride 108 H, Carbon Dioxide 25, Anion Gap 17, BUN 8, Creatinine 0.7, Est GFR ( Amer) > 60, Est GFR (Non- Af Amer) > 60, Random Glucose 93, Calcium 10.6 H, Total Bilirubin 0.9, AST 20, ALT 26, Alkaline Phosphatase 71, Troponin I < 0.01, Total Protein 7.4, Albumin 4.3, Globulin 3.2, Albumin/Globulin Ratio 1.4 10/28/17 04:56: WBC 8.2, RBC 4.59, Hgb 13.7, Hct 40.9, MCV 89.1, MCH 29.8, MCHC 33.5, RDW 14.3, Plt Count 237, MPV 10.6, Gran % 67.8, Lymph % (Auto) 25.1, [place] % (Auto) 5.5, Eos % (Auto) 1.5, Baso % (Auto) 0.1, Gran # 5.57, Lymph # (Auto) 2.1, [place] # (Auto) 0.5, Eos # (Auto) 0.1, Baso # (Auto) 0.01 10/28/17 04:56: Alcohol, Quantitative < 10 - RAD Interpretation Radiology Orders: 10/28/17 04:18 CHEST PORTABLE [RAD] Stat - Medication Orders Current Medication Orders: Discontinued Medications Aspirin (Aspirin) 325 mg PO ONCE STA Stop: 10/28/17 04:27 Last Admin: 10/28/17 04:27 Dose: Nitroglycerin (Nitro-Bid 2% Oint) 1 ea TOP ONCE STA Stop: 10/28/17 04:27 Last Admin: 10/28/17 04:44 Dose: 1 ea Potassium Chloride (K-Dur 20 Meq Er Tab) 20 meq PO STAT STA Stop: 10/28/17 05:29 <Kris Johns - Last Filed: 10/28/17 05:42> - PA / BANK VAULT CLERK / Resident Statement MD/DO has reviewed & agrees with the documentation as recorded. MD/DO has examined the patient and agrees with the treatment plan. - Scribe Statement The provider has reviewed the documentation as recorded by the Scribe <Ramírez Decker - Last Filed: 10/28/17 05:52> - Scribe Statement Ros Erickson Provider Scribe Attestation: All medical record entries made by the Scribe were at my direction and personally dictated by me. I have reviewed the chart and agree that the record accurately reflects my personal performance of the history, physical exam, medical decision making, and the department course for this patient. I have also personally directed, reviewed, and agree with the discharge instructions and disposition. (Ramírez Decker) Disposition/Present on Arrival - Present on Arrival Any Indicators Present on Arrival: No History of DVT/PE: No History of Uncontrolled Diabetes: No Urinary Catheter: No History of Decub. Ulcer: No History Surgical Site Infection Following: None - Disposition Have Diagnosis and Disposition been Completed?: Yes Disposition Time: 05:44 <Kris Johns - Last Filed: 10/28/17 05:42> <Ramírez Decker - Last Filed: 10/28/17 05:52> - Disposition Diagnosis: Chest pain, Hypertension Patient Problems: Current Active Problems Problem Status Onset Chest pain Acute Hypertension Acute Condition: FAIR Discharge Instructions (ExitCare): Chest Pain (ED) Referrals: Ann Butts MD [Primary Care Provider] - Follow up with primary Forms: Authorea (Norwegian)
[2017-10-28 04:20] VITALS: TEMP 98.3
[2017-10-28] MEDS ORDERED: Nitroglycerin 2% Ointment Foilpak UD TOP STA ×2 (04:26→05:53)
[2017-10-28 05:16] LABS: BASO # 0.01 K/mm3 (0.0-2.0); BASO % 0.1 % (0.0-3.0); EOS # 0.1 (0.0-0.7); EOS % 1.5 % (1.5-5.0); GRAN # 5.57 (1.4-6.5); GRAN % 67.8 % (50.0-68.0); HEMOGLOBIN 13.7 g/dL (12.0-16.0); LYMPH # 2.1 (1.2-3.4); LYMPH % 25.1 % (22.0-35.0); MEAN CELL VOLUME 89.1 fl (80.0-105.0); MEAN CORPUSCULAR HEMOGLOBIN 29.8 pg (25.0-35.0); MEAN CORPUSCULAR HGB CONC 33.5 g/dl (31.0-37.0); MEAN PLATELET VOLUME 10.6 fl (7.0-11.0); MONO # 0.5 (0.1-0.6); MONO % 5.5 % (1.0-6.0); RBC 4.59 10^6/uL (3.5-6.1); RED CELL DISTRIBUTION WIDTH 14.3 % (11.5-14.5); WHITE BLOOD COUNT 8.2 10^3/ul (4.5-11.0)
[2017-10-28 05:22] LABS: ALB/GLOB RATIO 1.4 (1.1-1.8); ALBUMIN 4.3 g/dL (3.0-4.8); ALT/SGPT 26 U/L (7-56); AST/SGOT 20 U/L (14-36); BLOOD UREA NITROGEN 8 mg/dL (7-21); CALCIUM 10.6 mg/dL (8.4-10.5); GFR AFRICAN-AMERICAN > 60; GFR NON-AFRICAN AMERICAN > 60
[2017-10-28] MEDS ORDERED: Potassium Chloride 20 mEq ER Tab PO STA (05:28)
[2017-10-28 05:33] LABS: TROPONIN I < 0.01 ng/mL
[2017-10-28 05:39] LABS: INR 1.07 (0.93-1.08); PARTIAL THROMBOPLASTIN TIME 32.5 Seconds (25.1-36.5); PROTHROMBIN TIME 12.3 SECONDS (9.4-12.5)
--- NOTE | 2017-10-28 06:28 | CP.PCM.HP ---
<Javed Dean - Last Filed: 10/28/17 06:24> History of Present Illness - History of Present Illness History of Present Illness: PGY-1 H&P for Dr. Trivedi CC: chest pain This is a 52 year old female with PMHx HTN, chronic back and leg pain with complaint of chest pain. It started earlier in the evening. Patient states that she was at a bus stop and saw a racoon. This scared her and she had some stabbing mid sternal chest pain afterwards. Patient also short of breath at the time. At time of encounter, patient states that the chest pain has decreased down to a dull soreness. She is no longer short of breath. Per ED documentation , patient took cocaine about 14 hours prior. However, patient denied any drug use during the encounter. PMHx: HTN, chronic back and leg pain PSHx: denies Allergies: benadryl Social: Half pack per day smoker for many years. Denies alcohol, drug use ( despite ED documentation). Per prior documentation, patient used heroin as well. Family Hx: sister of lung CA PMD: Dr. Butts Home meds: Clonidine 0.3 mg PO TID, Oxycodone 30 mg Q6H, Xanax prn Present on Admission - Present on Admission Any Indicators Present on Admission: No Review of Systems - Constitutional Constitutional: absent: Chills, Fever - EENT Eyes: absent: Change in Vision Ears: absent: Decreased Hearing Nose/Mouth/Throat: absent: Nasal Congestion - Cardiovascular Cardiovascular: Chest Pain - Respiratory Respiratory: Dyspnea (resolved). absent: Cough, Wheezing - Gastrointestinal Gastrointestinal: absent: Abdominal Pain, Constipation, Diarrhea, Nausea, Vomiting - Genitourinary Genitourinary: absent: Dysuria - Musculoskeletal Musculoskeletal: Back Pain, Other (leg pain) - Integumentary Integumentary: absent: Rash - Neurological Neurological: absent: Weakness - Psychiatric Psychiatric: Anxiety - Endocrine Endocrine: absent: Palpitations Past Patient History - Infectious Disease Hx of Infectious Diseases: None - Tetanus Immunizations Tetanus Immunization: Unknown - Past Social History Smoking Status: Heavy Smoker > 10 Cigarettes Daily - CARDIAC Hx Cardiac Disorders: Yes Hx Hypertension: Yes - PULMONARY Hx Respiratory Disorders: Yes Hx Asthma: Yes - MUSCULOSKELETAL/RHEUMATOLOGICAL Hx Musculoskeletal Disorders: Yes Hx Back Pain: Yes Hx Falls: No - PSYCHIATRIC Hx Substance Use: Yes Other/Comment: POLYSUBSTANCE ABUSE; ETOH/HEROIN - SURGICAL HISTORY Hx Surgeries: No - ANESTHESIA Hx Anesthesia Reactions: No Hx Malignant Hyperthermia: No Meds Allergies/Adverse Reactions: Allergies Allergy/AdvReac Type Severity Reaction Status Date / Time diphenhydramine Allergy ITCHING Verified 09/03/17 15:42 Physical Exam - Constitutional Appears: No Acute Distress - Head Exam Head Exam: ATRAUMATIC, NORMOCEPHALIC - Eye Exam Eye Exam: EOMI, PERRL - ENT Exam ENT Exam: Mucous Membranes Moist - Respiratory Exam Respiratory Exam: Clear to Auscultation Bilateral, NORMAL BREATHING PATTERN. absent: Rales, Rhonchi, Wheezes - Cardiovascular Exam Cardiovascular Exam: REGULAR RHYTHM, +S1, +S2 - GI/Abdominal Exam GI & Abdominal Exam: Normal Bowel Sounds, Soft. absent: Distended, Tenderness - Extremities Exam Extremities exam: Negative for: pedal edema - Neurological Exam Neurological exam: Alert, CN II-XII Intact, Oriented x3 - Psychiatric Exam Psychiatric exam: Anxious - Skin Skin Exam: Dry, Warm Results - Vital Signs Recent Vital Signs: Last Vital Signs Temp 98.3 F 10/28/17 04:19 Pulse 72 10/28/17 06:13 Resp 14 10/28/17 06:13 BP 151/107 H 10/28/17 06:13 Pulse Ox 96 10/28/17 06:13 - Labs Result Diagrams: 10/28/17 04:56 10/28/17 04:56 Labs: Laboratory Results - last 24 hr 10/28/17 10/28/17 10/28/17 04:56 04:56 04:56 WBC 8.2 RBC 4.59 Hgb 13.7 Hct 40.9 MCV 89.1 MCH 29.8 MCHC 33.5 RDW 14.3 Plt Count 237 MPV 10.6 Gran % 67.8 Lymph % (Auto) 25.1 [place] % (Auto) 5.5 Eos % (Auto) 1.5 Baso % (Auto) 0.1 Gran # 5.57 Lymph # (Auto) 2.1 [place] # (Auto) 0.5 Eos # (Auto) 0.1 Baso # (Auto) 0.01 PT INR APTT Sodium 146 Potassium 3.3 L Chloride 108 H Carbon Dioxide 25 Anion Gap 17 BUN 8 Creatinine 0.7 Est GFR ( Amer) > 60 Est GFR (Non-Af Amer) > 60 Random Glucose 93 Calcium 10.6 H Total Bilirubin 0.9 AST 20 ALT 26 Alkaline Phosphatase 71 Troponin I < 0.01 Total Protein 7.4 Albumin 4.3 Globulin 3.2 Albumin/Globulin Ratio 1.4 Alcohol, Quantitative < 10 10/28/17 04:56 WBC RBC Hgb Hct MCV MCH MCHC RDW Plt Count MPV Gran % Lymph % (Auto) [place] % (Auto) Eos % (Auto) Baso % (Auto) Gran # Lymph # (Auto) [place] # (Auto) Eos # (Auto) Baso # (Auto) PT 12.3 INR 1.07 APTT 32.5 Sodium Potassium Chloride Carbon Dioxide Anion Gap BUN Creatinine Est GFR ( Amer) Est GFR (Non-Af Amer) Random Glucose Calcium Total Bilirubin AST ALT Alkaline Phosphatase Troponin I Total Protein Albumin Globulin Albumin/Globulin Ratio Alcohol, Quantitative Assessment & Plan - Assessment and Plan (Free Text) Assessment: This is a 52 year old female with PMHx HTN, chronic back and leg pain with complaint of chest pain. Plan: 1. Chest pain Initial EKG and troponin were WNL f/u serial EKG and troponins Received ASA 325 mg in the ED cardiology consulted f/u TSH, free T4 resumed home clonidine 2. Questionable Cocaine Use f/u UDS Avoid beta blockers 3. Tobacco Use Disorder Patient counselled on smoking cessation Discussed with Dr. Shikha Dean PGY-1 <Josie Trivedi - Last Filed: 10/28/17 19:25> Results - Vital Signs Recent Vital Signs: Last Vital Signs Temp 98.3 F 10/28/17 04:19 Pulse 77 10/28/17 07:05 Resp 18 10/28/17 07:05 BP 147/86 10/28/17 07:05 Pulse Ox 97 10/28/17 07:05 - Labs Result Diagrams: 10/28/17 04:56 10/28/17 04:56 Labs: Laboratory Results - last 24 hr 10/28/17 06:02 Urine Opiates Screen Positive H Urine Methadone Screen Negative Ur Barbiturates Screen Negative Ur Phencyclidine Scrn Negative Ur Amphetamines Screen Negative U Benzodiazepines Scrn Negative U Oth Cocaine Metabols Positive H U Cannabinoids Screen Negative Attending/Attestation - Attestation I have personally seen and examined this patient.: Yes I have fully participated in the care of the patient.: Yes I have reviewed all pertinent clinical information: Yes Notes (Text): 10/28/17 19:24 Patient was seen when she was in the ER in bed # 4. Agree with history, physical examination, assessment and plan.
[2017-10-28 06:57] LABS: BARBITURATES, UR NEGATIVE (NEGATIVE)
[2017-10-28 07:09] VITALS: BP 147/86; PULSE 77; RESP 18; O2SAT 97
[2017-10-28 07:16] LABS: FREE T4 1.05 ng/dL (0.78-2.19)
[2017-10-28 07:23] LABS: BENZODIAZEPINES, UR NEGATIVE (NEGATIVE); OPIATES, UR POSITIVE (NEGATIVE); PHENCYCLIDINE, UR NEGATIVE (NEGATIVE)
[2017-10-28 07:48] LABS: HDL CHOLESTEROL 38 mg/dL (29-60)
--- NOTE | 2017-10-28 07:54 | RAD ---
HISTORY: chest pain COMPARISON: 09/03/2017 FINDINGS: LUNGS: No active pulmonary disease. PLEURA: No significant pleural effusion identified, no pneumothorax apparent. CARDIOVASCULAR: Normal. OSSEOUS STRUCTURES: No significant abnormalities. VISUALIZED UPPER ABDOMEN: Normal. OTHER FINDINGS: None. IMPRESSION: No active disease.
[2017-10-28 07:59] LABS: LDL CHOLESTEROL 97 mg/dL (0-129)
[2017-10-28] MEDS ORDERED: Potassium Chloride 20 mEq ER Tab PO ONE (09:14)
--- NOTE | 2017-10-28 10:58 | CARD ---
APPROVED REPORT EKG Measurement Heart [id number] <Conclusion> Sinus rhythm with premature supraventricular complexes LVH by voltage Improved repolarization c/w ECG 09/04/17
--- NOTE | 2017-10-28 16:11 | CP.PCM.DIS ---
Provider - Provider Date of Admission: 10/28/17 05:51 Attending physician: Susan Martinez MD Primary care physician: Ann Butts Time Spent in preparation of Discharge (in minutes): 35 Diagnosis - Discharge Diagnosis (1) Chest pain Status: Acute Hospital Course - Lab Results Lab Results: Most Recent Lab Values WBC 8.2 10^3/ul (4.5-11.0) 10/28/17 04:56 RBC 4.59 10^6/uL (3.5-6.1) 10/28/17 04:56 Hgb 13.7 g/dL (12.0-16.0) 10/28/17 04:56 Hct 40.9 % (36.0-48.0) 10/28/17 04:56 MCV 89.1 fl (80.0-105.0) 10/28/17 04:56 MCH 29.8 pg (25.0-35.0) 10/28/17 04:56 MCHC 33.5 g/dl (31.0-37.0) 10/28/17 04:56 RDW 14.3 % (11.5-14.5) 10/28/17 04:56 Plt Count 237 10^3/uL (120.0-450.0) 10/28/17 04:56 MPV 10.6 fl (7.0-11.0) 10/28/17 04:56 Gran % 67.8 % (50.0-68.0) 10/28/17 04:56 Lymph % (Auto) 25.1 % (22.0-35.0) 10/28/17 04:56 [place] % (Auto) 5.5 % (1.0-6.0) 10/28/17 04:56 Eos % (Auto) 1.5 % (1.5-5.0) 10/28/17 04:56 Baso % (Auto) 0.1 % (0.0-3.0) 10/28/17 04:56 Gran # 5.57 (1.4-6.5) 10/28/17 04:56 Lymph # (Auto) 2.1 (1.2-3.4) 10/28/17 04:56 [place] # (Auto) 0.5 (0.1-0.6) 10/28/17 04:56 Eos # (Auto) 0.1 (0.0-0.7) 10/28/17 04:56 Baso # (Auto) 0.01 K/mm3 (0.0-2.0) 10/28/17 04:56 PT 12.3 SECONDS (9.4-12.5) 10/28/17 04:56 INR 1.07 (0.93-1.08) 10/28/17 04:56 APTT 32.5 Seconds (25.1-36.5) 10/28/17 04:56 Sodium 146 mmol/L (132-148) 10/28/17 04:56 Potassium 3.3 mmol/L (3.6-5.0) L 10/28/17 04:56 Chloride 108 mmol/L (98-107) H 10/28/17 04:56 Carbon Dioxide 25 mmol/L (21-33) 10/28/17 04:56 Anion Gap 17 (10-20) 10/28/17 04:56 BUN 8 mg/dL (7-21) 10/28/17 04:56 Creatinine 0.7 mg/dl (0.7-1.2) 10/28/17 04:56 Est GFR ( Amer) > 60 10/28/17 04:56 Est GFR (Non-Af Amer) > 60 10/28/17 04:56 Random Glucose 93 mg/dL (70-110) 10/28/17 04:56 Hemoglobin A1c 5.3 % (4.2-6.5) 10/28/17 04:50 Calcium 10.6 mg/dL (8.4-10.5) H 10/28/17 04:56 Total Bilirubin 0.9 mg/dL (0.2-1.3) 10/28/17 04:56 AST 20 U/L (14-36) 10/28/17 04:56 ALT 26 U/L (7-56) 10/28/17 04:56 Alkaline Phosphatase 71 U/L (38-126) 10/28/17 04:56 Troponin I < 0.01 ng/mL 10/28/17 04:56 Total Protein 7.4 g/dL (5.8-8.3) 10/28/17 04:56 Albumin 4.3 g/dL (3.0-4.8) 10/28/17 04:56 Globulin 3.2 gm/dL 10/28/17 04:56 Albumin/Globulin Ratio 1.4 (1.1-1.8) 10/28/17 04:56 Triglycerides 154 mg/dL (35-160) 10/28/17 04:56 Cholesterol 176 mg/dL (130-200) 10/28/17 04:56 LDL Cholesterol Direct 97 mg/dL (0-129) 10/28/17 04:56 HDL Cholesterol 38 mg/dL (29-60) 10/28/17 04:56 Free T4 1.05 ng/dL (0.78-2.19) 10/28/17 04:59 TSH 3rd Generation 0.07 mIU/mL (0.46-4.68) L 10/28/17 04:59 Urine Opiates Screen Positive (NEGATIVE) H 10/28/17 06:02 Urine Methadone Screen Negative (NEGATIVE) 10/28/17 06:02 Ur Barbiturates Screen Negative (NEGATIVE) 10/28/17 06:02 Ur Phencyclidine Scrn Negative (NEGATIVE) 10/28/17 06:02 Ur Amphetamines Screen Negative (NEGATIVE) 10/28/17 06:02 U Benzodiazepines Scrn Negative (NEGATIVE) 10/28/17 06:02 U Oth Cocaine Metabols Positive (NEGATIVE) H 10/28/17 06:02 U Cannabinoids Screen Negative (NEGATIVE) 10/28/17 06:02 Alcohol, Quantitative < 10 mg/dL (0-10) 10/28/17 04:56 - Hospital Course Hospital Course: 52 year old female with PMHx HTN, chronic back and leg pain with complaint of chest pain. It started earlier in the evening. Patient states that she was at a bus stop and saw a racoon. UDS positive for opiates and cocaine. Initial troponin and EKG normal. Pt left AMA this morning prior to getting examined. Discharge Plan - Follow Up Plan Condition: FAIR Disposition: AGAINST MEDICAL ADVICE Instructions: Chest Pain (DC), Chest Pain (GEN) Referrals: Ann Butts MD [Primary Care Provider] -
== END 2017-10-28 12:44 | disposition left against medical advice (07) ==
LOC: ED 04:05 → ERH 05:51 → 2RNO 07:50
PROVIDERS: ADMIT Internal Medicine; ATTEND Internal Medicine
DX: R07.9 Chest pain, unspecified (principal); I10 Essential (primary) hypertension; J45.909 Unspecified asthma, uncomplicated; F17.210 Nicotine dependence, cigarettes, uncomplicated; Z80.1 Family history of malignant neoplasm of trachea, bronchus and lung; G89.29 Other chronic pain
CPT/HCPCS: 71045; 80053; 80061; 80320; 80324; 80345; 80346; 80349; 80353; 80358; 80361; 83036; 83992; 84439; 84443; 84484; 85025; 85610; 85730; 93005; 99285; G0378

== ENCOUNTER 2018-01-03 16:35 | Emergency (ER) | payer MEDICAID ==
[2018-01-03 16:36] VITALS: BMI 30.7
[2018-01-03 16:53] VITALS: RESP 18
--- NOTE | 2018-01-03 17:07 | ED PDOC ---
Arrival/HPI - General Chief Complaint: Abnormal Skin Integrity Time Seen by Provider: 01/03/18 16:51 Historian: Patient - History of Present Illness Narrative History of Present Illness (Text): 01/03/18 16:58 52yo female with pmhx of Hypertension and CHF who present with scalp to her left temporal head. States she tripped over a sidewalk and sustained a laceration this afternoon. Notes that she is not up to date with her TD booster. Denies LOC, focal weakness, headache, nausea, dizziness, any other complaint. Past Medical History - Provider Review Nursing Documentation Reviewed: Yes - Past History Past History: No Previous - Infectious Disease Hx of Infectious Diseases: None - Tetanus Immunization Tetanus Immunization: Unknown - Reproductive Menopause: Yes - Cardiac Hx Cardiac Disorders: No - Pulmonary Hx Respiratory Disorders: Yes Hx Asthma: Yes - Musculoskeletal/Rheumatological Hx Musculoskeletal Disorders: Yes Hx Back Pain: Yes Hx Falls: No - Psychiatric Hx Substance Use: Yes Other/Comment: POLYSUBSTANCE ABUSE; ETOH/HEROIN - Anesthesia Hx Anesthesia Reactions: No Hx Malignant Hyperthermia: No Family/Social History - Physician Review Nursing Documentation Reviewed: Yes Family/Social History: Unknown Family HX Smoking Status: Heavy Smoker > 10 Cigarettes Daily Hx Alcohol Use: Yes (OCCASSIONAL) Hx Substance Use: Yes Substance used: marijuana, heroin Allergies/Home Meds Allergies/Adverse Reactions: Allergies diphenhydramine Allergy (Verified 01/03/18 16:44) ITCHING Home Medications: Home Meds Medication Instructions Recorded Confirmed cloNIDine [Catapres] 0.3 mg PO TID 10/28/17 01/03/18 Review of Systems - Physician Review All systems were reviewed & negative as marked: Yes - Review of Systems Constitutional: Normal Eyes: Normal ENT: Normal Respiratory: Normal Cardiovascular: Normal Gastrointestinal: Normal Genitourinary Female: Normal Musculoskeletal: Normal Skin: Laceration Neurological: Normal Endocrine: Normal Hemo/Lymphatic: Normal Psychiatric: Normal Physical Exam Vital Signs Reviewed: Yes Vital Signs Temp Pulse Resp BP Pulse Ox 01/03/18 19:08 78 18 122/74 99 01/03/18 18:36 98.6 F 77 18 120/79 99 01/03/18 16:52 98.4 F 100 H 18 115/80 96 Temperature: Afebrile Blood Pressure: Normal Pulse: Regular Respiratory Rate: Normal Appearance: Positive for: Well-Appearing, Non-Toxic, Comfortable Pain Distress: None Mental Status: Positive for: Alert and Oriented X 3 - Systems Exam Head: Present: Atraumatic, Normocephalic Pupils: Present: PERRL Extroacular Muscles: Present: EOMI Conjunctiva: Present: Normal Mouth: Present: Moist Mucous Membranes Neck: Present: Normal Range of Motion Respiratory/Chest: Present: Clear to Auscultation, Good Air Exchange. No: Respiratory Distress, Accessory Muscle Use Cardiovascular: Present: Regular Rate and Rhythm, Normal S1, S2. No: Murmurs Abdomen: No: Tenderness, Distention, Peritoneal Signs Back: Present: Normal Inspection Upper Extremity: Present: Normal Inspection. No: Cyanosis, Edema Lower Extremity: Present: Normal Inspection. No: Edema Neurological: Present: GCS=15, CN II-XII Intact, Speech Normal Skin: Present: Warm, Dry, Normal Color, Laceration (4cm linear laceration on left parietal scalp). No: Rashes Psychiatric: Present: Alert, Oriented x 3, Normal Insight, Normal Concentration Medical Decision Making ED Course and Treatment: 01/03/18 19:00 FINDINGS: Brain: Unremarkable. No hemorrhage. No significant white matter disease. No edema. Ventricles: Unremarkable. No ventriculomegaly. Bones/joints: See below. Soft tissues: There is a left parietal scalp hematoma. There is no underlying fracture. Sinuses: Unremarkable as visualized. No acute sinusitis. Mastoid air cells: Unremarkable as visualized. No mastoid effusion. IMPRESSION: No acute findings. PT was neurologically intact in ED Her wound was irrigated and approximated with 11staples. Bacitracine was applied and dressed Head CT was ordered to r/o any derangement and was negative. Pt was DC home with tramadol for pain control. - RAD Interpretation Radiology Orders: 01/03/18 17:29 HEAD W/O CONTRAST [CT] Stat - Medication Orders Current Medication Orders: Discontinued Medications Acetaminophen (Tylenol 325mg Tab) 650 mg PO STAT STA Stop: 01/03/18 17:09 Last Admin: 01/03/18 17:13 Dose: 650 mg MAR Pain/Vitals Document 01/03/18 17:13 [facility] (Rec: 01/03/18 17:14 [facility] [id number]) Pain Reassessment Is This A Pain ReAssessment? No Sleep Is patient sleeping during reassessment? No Presence of Pain Presence of Pain Yes Pain Scale Used Pain Scale Used Numeric Location Left, Right or Bilateral Left Pain Location Body [place] Installer Description Intermittent Intensity 4 Scale Used Numeric Tetanus/Reduced Diphtheria/Acell Pertussis (Boostrix Vaccine Inj) 0.5 ml IM .ONCE ONE Stop: 01/03/18 17:09 Last Admin: 01/03/18 17:14 Dose: 0.5 ml Immunization Registry Document 01/03/18 17:14 [facility] (Rec: 01/03/18 17:14 [facility] [id number]) Immunization Registry Consent Date 09/03/17 Procedure: Wound Repair - Consent Obtained Consent obtained: Verbal - Performed by Performed by: Mid-level Provider - Indications Indication(s):: Laceration - Location Location:: Scalp Shape:: Linear Dimensions Length cm: 4 - Anesthetic Technique Anesthetic Technique: Oral pain medication (tylenol 650mg) - Debris Debris:: None - Complexity Complexity:: Intermediate (2 layer) - Wound repair method [place]:: Tissue glue (11 bakari) - Muscle repiar layer closed with Muscle repair layer closed with:: Wound well approximated, Abx ointment applied , Dressing applied, Tetanus up to date - Patient tolerated procedure Patient Tolerated Procedure:: Well Disposition/Present on Arrival - Present on Arrival Any Indicators Present on Arrival: No History of DVT/PE: No History of Uncontrolled Diabetes: No Urinary Catheter: No History of Decub. Ulcer: No History Surgical Site Infection Following: None - Disposition Have Diagnosis and Disposition been Completed?: Yes Diagnosis: Scalp laceration Disposition: HOME/ ROUTINE Disposition Time: 19:00 Patient Plan: Discharge Condition: STABLE Discharge Instructions (ExitCare): Laceration Repair With [place] (DC) Additional Instructions: Follow up with your Doctor in 6days for bakari removal Return to ED for any new or worsening symptoms Prescriptions: traMADol [Ultram] 50 mg PO TID #7 tab Referrals: Ann Butts MD [Non-Staff] - Follow up with primary Forms: [employer] (Ukrainian)
[2018-01-03] MEDS ORDERED: TDAP Vaccine 0.5 mL Syr IM ONE (17:08)
--- NOTE | 2018-01-03 18:53 | CT ---
EXAM: CT Head Without Intravenous Contrast CLINICAL HISTORY: 52 years old, female; Injury or trauma; Fall; Initial encounter; Laceration and sprain or strain; Consciousness not specified; Without residual foreign body; Forehead and head, generalized; Additional info: Head injury TECHNIQUE: Axial computed tomography images of the head/brain without intravenous contrast. All CT scans at this facility use at least one of these dose optimization techniques: automated exposure control; mA and/or kV adjustment per patient size (includes targeted exams where dose is matched to clinical indication); or iterative reconstruction. Coronal and sagittal reformatted images were created and reviewed. COMPARISON: No relevant prior studies available. FINDINGS: Brain: Unremarkable. No hemorrhage. No significant white matter disease. No edema. Ventricles: Unremarkable. No ventriculomegaly. Bones/joints: See below. Soft tissues: There is a left parietal scalp hematoma. There is no underlying fracture. Sinuses: Unremarkable as visualized. No acute sinusitis. Mastoid air cells: Unremarkable as visualized. No mastoid effusion. IMPRESSION: No acute findings.
[2018-01-03 19:08] VITALS: TEMP 98.6; O2SAT 99
[2018-01-03 19:10] VITALS: BP 122/74; PULSE 78
== END 2018-01-03 19:08 | disposition home or self-care (01) ==
LOC: ED 16:35
DX: S01.01XA Laceration without foreign body of scalp, initial encounter (principal); W01.0XXA Fall on same level from slipping, tripping and stumbling without subsequent striking against object, initial encounter; Y92.480 Sidewalk as the place of occurrence of the external cause; Z23 Encounter for immunization